=== PATIENT | female | born 1970 | race Caucasian/White ===

== ENCOUNTER 2021-08-15 14:00 | Outpatient (REF) | payer BC, SELFPAY ==
--- NOTE | ~2021-08-15 | XR_ITS ---
EXAMINATION: XR FOOT, LEFT CLINICAL INFORMATION: Pain COMPARISON No films available at this time to compare TECHNIQUE: AP, lateral, and oblique views of the left foot. FINDINGS: Alignment is felt to be within normal limits. There is no evidence for acute fracture or dislocation. Mild spurring in the posterior calcaneus at the insertion of the Achilles. No evidence for bony erosion. XR/XR foot LT 2V IMPRESSION: No acute bony finding. No bony erosion is seen. Alignment is felt to be within normal limits. No significant degeneration. Some spurring in the posterior calcaneus noted.
== END 2021-08-15 14:01 | disposition home or self-care (01) ==
LOC: HO.HMGCLDS 14:00
PROVIDERS: PCP Internal Medicine; Visit Provider Internal Medicine
DX: M79.672 Pain in left foot (principal)
CPT/HCPCS: 73620

== ENCOUNTER 2021-09-03 10:02 | Outpatient (REF) | payer BC, SELFPAY ==
[2021-09-04 09:43] LABS: BV Int Neg Control Negative (Negative); BV Int Pos Control Positive (Positive)
[2021-09-09 18:46] LABS: HPV mRNA E6/E7 rflx Not Detected (Not Detected)
== END 2021-09-03 10:03 | disposition home or self-care (01) ==
LOC: HO.LAB 10:02
PROVIDERS: PCP Internal Medicine; Visit Provider Advanced Practice Midwife
DX: Z01.411 Encounter for gynecological examination (general) (routine) with abnormal findings (principal); Z11.51 Encounter for screening for human papillomavirus (HPV); N89.8 Other specified noninflammatory disorders of vagina; R21 Rash and other nonspecific skin eruption
CPT/HCPCS: 87480; 87510; 87624; 87660; 88142

== ENCOUNTER 2021-09-23 07:14 | Outpatient (REF) | payer BC, SELFPAY | END 2021-09-23 07:15 | disposition home or self-care (01) | LOC: HO.MAMMO 07:14 | PROVIDERS: Visit Provider Internal Medicine | DX: Z13.89 Encounter for screening for other disorder (principal) ==

== ENCOUNTER 2021-11-11 07:23 | Outpatient (REF) | payer BC, SELFPAY ==
[2021-11-11 08:25] LABS: MANUAL DIFF FLAG NO
[2021-11-11 08:34] LABS: Basophils Absolute Auto 0.1 X10*3/uL (0.0-0.2); Basophils Percent Auto 1.3 % (0-2); Eosinophils Absolute Auto 0.2 X10*3/uL (0.0-0.4); Eosinophils Percent Auto 3.8 % (0-4); Hematocrit 43.8 % (37.0-47.0); Hemoglobin 13.6 g/dl (12.0-16.0); Imm Gran Abs Auto 0.03 X10*3/uL (0.00-0.03); Imm Gran Pct Auto 0.5 % (0.0-0.4); Lymphocytes Absolute Auto 1.9 X10*3/uL (1.2-4.9); Lymphocytes Percent Auto 29.6 % (20-40); Mean Corpuscular HGB Conc 31.1 g/dl (31.0-35.0); Mean Corpuscular Hemoglobin 26.4 pg (27.0-33.0); Mean Corpuscular Volume 84.9 fL (80.0-98.0); Mean Platelet Volume 10.9 fL (9.4-12.3); Monocytes Absolute Auto 0.5 X10*3/uL (0.1-1.2); Monocytes Percent Auto 8.1 % (2-11); Neutrophils Absolute Auto 3.6 x10*3/uL (2.0-8.3); Neutrophils Percent Auto 56.7 % (45-73); Platelet Count 347 X10*3/uL (160-400); Red Blood Count 5.16 X10*6/uL (4.20-5.50); Red Cell Distribution Width 15.1 % (11.0-16.0); White Blood Count 6.3 X10*3/uL (4.8-10.8)
[2021-11-11 09:03] LABS: Alanine Aminotransferase 15 U/L (0-31); Albumin Level 4.3 g/dL (3.5-5.0); Alkaline Phosphatase 102 U/L (39-117); Anion Gap 12 (12-20); Aspartate Amino Transferase 21 U/L (5-31); Bilirubin Total 0.5 mg/dL (0.0-1.0); Blood Urea Nitrogen 9 mg/dL (9-16); Calcium 9.6 mg/dL (8.4-10.2); Carbon Dioxide 27 mmol/L (22-29); Chloride 107 mmol/L (96-108); Cholesterol 227 mg/dL; Estimated Glomerular Filt Rate > 60; Glucose Random 112 mg/dL (60-115); HDL Cholesterol 58 mg/dL; LDL Cholesterol Calculated 149 mg/dl; Potassium 4.4 mmol/L (3.3-5.1); Sodium 142 mmol/L (135-145); Total Protein 7.1 g/dL (6.5-8.0); Triglycerides 100 mg/dL
[2021-11-11 09:29] LABS: Free T4 (Free Thyroxine) 1.04 ng/dL (0.71-1.85); Vitamin D 25-OH Total 16.7 ng/mL (>30)
[2021-11-11 09:36] LABS: Folate 7.2 ng/mL (> or = 4.0); Vitamin B12 538 pg/mL (200-900)
== END 2021-11-11 07:24 | disposition home or self-care (01) ==
LOC: HO.LAB 07:23
PROVIDERS: Absent Provider Internal Medicine; PCP Internal Medicine; Referring Provider Internal Medicine; Visit Provider Nurse Practitioner
DX: K21.9 Gastro-esophageal reflux disease without esophagitis (principal); E78.00 Pure hypercholesterolemia, unspecified; E66.01 Morbid (severe) obesity due to excess calories; Z68.44 Body mass index [BMI] 60.0-69.9, adult
CPT/HCPCS: 36415; 80053; 80061; 82306; 82607; 82746; 84439; 84443; 85025

== ENCOUNTER → 2022-01-01 07:31 | Outpatient (BNVA) | payer BC, SELFPAY | PROVIDERS: PCP Internal Medicine; Referring Provider Internal Medicine; Visit Provider Nurse Practitioner | DX: Z13.89 Encounter for screening for other disorder (principal) ==

== ENCOUNTER → 2022-06-08 06:57 | Outpatient (REF) | payer BC, SELFPAY ==
--- NOTE | 2022-06-08 06:59 | HM_ITS ---
Conclusion: 1. Patient was monitored for total period of 2 days and 23 hours 2. Baseline was normal sinus rhythm with average heart rate of 76 beats per minute 3. No significant pauses noted 4. Total of 1526 PVCs noted consistent with occasional PVCs. 5. Rare PACs noted 6. Patient marked events without symptoms correlating with isolated PVCs MTDD
== END ==
LOC: HO.CARD 06:57
PROVIDERS: PCP Internal Medicine; Visit Provider Internal Medicine
DX: R00.2 Palpitations (principal)
CPT/HCPCS: 93242

== ENCOUNTER 2022-06-19 07:34 | Outpatient (REF) | payer BC, SELFPAY ==
--- NOTE | ~2022-06-19 | MM_ITS ---
EXAMINATION: MM SCREENING DIGITAL BREAST TOMOSYNTHESIS, BILATERAL CLINICAL INFORMATION: Screening. Asymptomatic. Mammography over 10 years ago, purged. The lifetime risk of breast cancer based on the Tyrer-Cuzick Model is 10%. COMPARISON: None (current study represents new baseline exam). TECHNIQUE: Digital breast tomosynthesis is performed in both the craniocaudal and mediolateral oblique views along with computer-aided detection (CAD). Synthesized 2D images are generated from the tomosynthesis. Additional bilateral CC and additional bilateral MLO views are obtained. FINDINGS: The breasts are almost entirely fatty (ACR BI-RADS breast composition Category a). There are no significant masses, abnormal calcifications, or other abnormalities. No architectural abnormality. There are mildly prominent draining veins bilateral upper breasts axilla. No adenopathy. No skin thickening or coarsening of the Nabeel's ligaments. MM/MM tomosynthesis screening BI IMPRESSION: No mammographic evidence of malignancy. ASSESSMENT: BI-RADS 2: Benign RECOMMENDATION: Routine annual mammography screening. This patient's information was entered into a reminder system with a target due date for their next mammogram.
== END 2022-06-19 07:35 | disposition home or self-care (01) ==
LOC: HO.MAMMO 07:34
PROVIDERS: PCP Internal Medicine; Visit Provider Internal Medicine
DX: Z12.31 Encounter for screening mammogram for malignant neoplasm of breast (principal)
CPT/HCPCS: 77063; 77067

== ENCOUNTER → 2022-12-23 10:00 | Outpatient (BNVA) | payer BC, SELFPAY | PROVIDERS: PCP Internal Medicine; Visit Provider Advanced Practice Midwife | DX: Z13.89 Encounter for screening for other disorder (principal) ==

== ENCOUNTER 2023-04-09 06:06 | Outpatient (REF) | payer BC, SELFPAY ==
[2023-04-09 11:23] LABS: MANUAL DIFF FLAG NO
[2023-04-09 11:42] LABS: Basophils Absolute Auto 0.1 X10*3/uL (0.0-0.2); Basophils Percent Auto 1.2 % (0-2); Eosinophils Absolute Auto 0.3 X10*3/uL (0.0-0.4); Eosinophils Percent Auto 5.2 % (0-4); Hematocrit 40.9 % (37.0-47.0); Hemoglobin 12.8 g/dl (12.0-16.0); Imm Gran Abs Auto 0.03 X10*3/uL (0.00-0.03); Imm Gran Pct Auto 0.5 % (0.0-0.4); Lymphocytes Percent Auto 33.4 % (20-40); Mean Corpuscular HGB Conc 31.3 g/dl (31.0-35.0); Mean Corpuscular Hemoglobin 26.6 pg (27.0-33.0); Mean Platelet Volume 11.5 fL (9.4-12.3); Monocytes Absolute Auto 0.5 X10*3/uL (0.1-1.2); Monocytes Percent Auto 8.2 % (2-11); Neutrophils Absolute Auto 3.1 x10*3/uL (2.0-8.3); Neutrophils Percent Auto 51.5 % (45-73); Platelet Count 351 X10*3/uL (160-400); Red Blood Count 4.81 X10*6/uL (4.20-5.50); Red Cell Distribution Width 15.4 % (11.0-16.0)
[2023-04-09 12:22] LABS: Erythrocyte Sedimentation Rate 18 MM/HR (0-20)
[2023-04-09 13:38] LABS: Estimated Average Glucose 111 mg/dL; Hemoglobin A1c % 5.5 %
[2023-04-09 15:20] LABS: Alanine Aminotransferase 12 U/L (0-31); Albumin Level 3.9 g/dL (3.5-5.0); Alkaline Phosphatase 84 U/L (39-117); Anion Gap 15 (12-20); Aspartate Amino Transferase 16 U/L (5-31); Bilirubin Total 0.5 mg/dL (0.0-1.0); Blood Urea Nitrogen 14 mg/dL (9-16); Calcium 9.3 mg/dL (8.4-10.2); Carbon Dioxide 24 mmol/L (22-29); Chloride 106 mmol/L (96-108); Cholesterol 240 mg/dL; Estimated Glomerular Filt Rate > 60; Free T4 (Free Thyroxine) 0.83 ng/dL (0.71-1.85); Glucose Random 105 mg/dL (60-115); HDL Cholesterol 63 mg/dL; LDL Cholesterol Calculated 160 mg/dl; Potassium 4.3 mmol/L (3.3-5.1); Sodium 141 mmol/L (135-145); Thyroid Stimulating Hormone 4.95 uIU/mL (0.32-4.0); Total Protein 6.8 g/dL (6.5-8.0); Triglycerides 89 mg/dL; Vitamin D 25-OH Total 20.5 ng/mL (>30)
[2023-04-09 15:47] LABS: Folate 5.8 ng/mL (> or = 4.0); Vitamin B12 412 pg/mL (200-900)
== END 2023-04-09 06:07 | disposition home or self-care (01) ==
LOC: HO.HMGCLDS 06:06
PROVIDERS: PCP Internal Medicine; Visit Provider Internal Medicine
DX: E55.9 Vitamin D deficiency, unspecified (principal); K21.9 Gastro-esophageal reflux disease without esophagitis; R73.02 Impaired glucose tolerance (oral); E78.00 Pure hypercholesterolemia, unspecified; L40.9 Psoriasis, unspecified
CPT/HCPCS: 36415; 80053; 80061; 82306; 82607; 82746; 83036; 84439; 84443; 85025; 85652

== ENCOUNTER 2023-04-14 09:15 | Outpatient (AMB) | payer BC, SELFPAY ==
[2023-04-14 09:25] VITALS: BP 128/70; PULSE 75; O2SAT 98; BMI 60.9
--- NOTE | 2023-04-14 09:25 | MHC.PC.OV ---
Vital Signs 04/14/23 09:25 Height 4 ft 11 in Weight 301 lb 5.95 oz BMI 60.9 BP 128/70 Blood Pressure Location Lt brachial Position Sitting Pulse 75 Pulse Source Pulse Oximeter Pulse Oximetry (%) 98 Oxygen Delivery Method Room Air Intake Visit Reasons: PE Allergies Sulfa (Sulfonamide Antibiotics) Allergy (Severe, Verified 04/14/23 09:25) Hives Medication List - Last Reconciled 04/14/23 by Anne Marie Boone MD betamethasone dipropionate 0.05% topical cetirizine (Zyrtec) 10 mg PO DAILY PRN doxycycline monohydrate 100 mg PO BID hydrocortisone 2.5% topical omeprazole 20 mg PO DAILY Tobacco use date assessed: 04/14/23 Dental Screening Dental Screen Date: 04/14/23 Did you have a dental visit in the last 12 months?: Yes Did you have a dental problem in the last 6 months where you did not have access to dental care?: No Was dental information given to patient?: Patient has dentist HPI PE HPI Details 52-year-old morbidly obese female with impaired glucose tolerance hypercholesterolemia GERD palpitations last seen in May 2022. Cologuard test up-to-date mammogram up-to-date. 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 Mother No problems noted. Brother No problems noted. Maternal Aunt Lung cancer Brain cancer Maternal Uncle Brain cancer Maternal Uncle Alcohol abuse Mental health disorder Social History (Updated 04/14/23 @ 10:01 by Anne Marie Boone MD) Housing: House Alcohol intake: current Alcohol intake frequency: holidays/special occasions only Patient Tobacco Use Status: Never used Tobacco e-Cigarette/Vaping Use: Never Used Second Hand Smoke Exposure: No Current occupational status: employed Sexual orientation: Lesbian/Deutsch/Homosexual Gender identity: Female Cognitive needs: No Hearing needs: No Vision needs: No Female Reproductive History Menstrual Age of Menarche: 13 Questionnaire PHQ-9 Over the last 2 weeks, how often have you been bothered by any of the following problems? 1. Little interest or pleasure in doing things: not at all 2. Feeling down, depressed, or hopeless: not at all 3. Trouble falling or staying asleep, or sleeping too much: not at all 4. Feeling tired or having little energy: not at all 5. Poor appetite or overeating: not at all 6. Feeling bad about yourself - or that you are a failure or have let yourself or your family down: not at all 7. Trouble concentrating on things, such as reading the newspaper or watching television: not at all 8. Moving or speaking so slowly that other people could have noticed. Or the opposite - being so fidgety or restless that you have been moving around a lot more than usual: not at all 9. Thoughts that you would be better off or of hurting yourself in some way: not at all Total score: 0 Depression Screening Interpretation: Negative Source: Developed by Drs. Antolin Thomson, Marium Farfan, Nura Fernandez and colleagues, with an educational rupesh from [employer]. Thrive Questionnaire Date Thrive assessed: 04/14/23 I am a: Patient What is your living situation today?: I have a steady place to live Within the past 12 months, did the food you bought not last and you didn't have the money to get more?: Never true Within the past 12 months, did you worry whether your food would run out before you got money to buy more?: Never true Do you have trouble paying for medicines?: No Do you have trouble getting transportation to medical appointments?: No Do you have trouble paying your heating and electricity bill?: No Do you have trouble taking care of your child, family member or friend?: No Do you have trouble with day-to-day activities such as bathing, preparing meals, shopping, managing finances, etc.?: No Are you currently unemployed and looking for a job?: No Are you interested in more education?: No Currently or been in a relationship where the following occur: no concerns reported AUDIT C Alcohol Use Questionnaire (AUDIT-C) 1. How often do you have a drink containing alcohol?: Monthly or less 2. How many drinks containing alcohol do you have on a typical day when you are drinking?: 1 or 2 3. How often do you have six or more drinks on one occasion?: Never Total Score: 1 TAMMIE-7 AMB Questionnaire TAMMIE-7 Date TAMMIE - 7 assessed: 04/14/23 Feeling nervous, anxious, or on edge: 0 = Not at all Not being able to stop or control worryin = Not at all Worrying too much about different things: 0 = Not at all Trouble relaxin = Not at all Being so restless that it is hard to sit still: 0 = Not at all Becoming easily annoyed or irritable: 0 = Not at all Feeling afraid as if something awful might happen: 0 = Not at all Total TAMMIE-7 score (0-4 normal; 5-9 mild; 10-14 moderate; 15-21 severe): 0 Source: Developed by Drs. Antolin Thomson, Marium Farfan, Nura Fernandez and colleagues, with an educational rupesh from [employer]. Review of Systems Const Denies poor appetite and Denies weakness Eyes Denies no additional complaints ENT Reports Normal hearing present Card Denies chest pain, Denies syncope, Denies rapid heart rate and Denies dyspnea Resp Denies cough and Denies dyspnea GI Denies change in stool character, Reports constipation, Denies diarrhea, Denies nausea and Denies vomiting Denies urinary frequency, Denies difficulty voiding and Denies dysuria Neuro Reports Normal hearing present, Denies confusion, Denies syncope and Denies weakness Psych Denies confusion Physical exam (Primary Care) Vital Signs: Last Vital Signs Pulse 75 04/14/23 09:25 BP 128/70 04/14/23 09:25 Pulse Ox 98 04/14/23 09:25 Oxygen Delivery Method Room Air 04/14/23 09:25 BMI result Body Mass Index 60.9 Tobacco/Smoking Status: Tobacco use Status Tobacco use date assessed 04/14/23 04/14/23 09:26 Patient Tobacco Use Status Never used Tobacco 04/14/23 09:26 e-Cigarette/Vaping Use Never Used 04/14/23 09:26 PHQ-9: PHQ-9 Score PHQ-9: Total score 0 04/14/23 09:45 Depression Screening Interpretation: Negative Thrive Assessment: Date of Thrive Assessment Date Thrive assessed 04/14/23 04/14/23 09:26 Currently or been in a relationship where the following occur: no concerns reported Const General: alert and awake; No confusion Orientation/consciousness: No confusion HENMT Head: Yes normocephalic Ears: external ears normal and TM's normal bilaterally Face and sinus: Yes normal facial exam Mouth: moist mucous membranes Throat: Yes tonsils normal Eyes Conjunctivae: conjunctivae normal Pupils: Equal, round and reactive pupils present and Pupil accommodation reflex normal Direct Ophthalmoscopy: normal light reflex Neck Neck: No lymphadenopathy Thyroid: Thyroid normal Chest Chest palpation & inspection: normal inspection of the chest Resp Effort & Inspection: normal respiratory effort and no audible wheezes Auscultation: clear to auscultation bilaterally, no crackles, no wheezes and lung sounds not diminished Cardio Rate: regular rate Rhythm: regular rhythm Peripheral pulses: radial pulses present and dorsalis pedis present GI Other: Up-to-date Cologuard and declined rectal Palpation (GI): no masses Auscultation: normal bowel sounds and normoactive bowel sounds Rectal Exam - Female: deferred Back/Spine/Pelvis Other: Multiple erythematous rash 123 cm scaly axillary elbows and scalp Skin General skin exam: no rashes or lesions noted Rashes: no rashes Neuro General: deep tendon reflexes 2+ bilaterally and No confusion Cranial nerves: Yes Equal, round and reactive pupils present, Yes Midline tongue present, Yes Normal hearing present and Yes Ability to bilaterally elevate shoulders present Cognition (Neuro): normal cognition Gait exam (Neuro): Normal gait present Motor exam (neuro): 5/5 motor strength present throughout Deep tendon reflexes (DTR's): Right brachioradialis reflex intensity grade: 2+, Left brachioradialis reflex intensity grade: 2+, Right patellar reflex intensity grade: 2+ and Left patellar reflex intensity grade: 2+ Extrem General: No edema Assessment and Plan Assessment & Plan (1) Annual physical exam: Code(s): Z00.00 - Encounter for general adult medical examination without abnormal findings (2) Morbid obesity with BMI of 60.0-69.9, adult: Code(s): E66.01 - Morbid (severe) obesity due to excess calories; Z68.44 - Body mass index [BMI] 60.0-69.9, adult Plan: Diet and exercise (3) GERD (gastroesophageal reflux disease): Code(s): K21.9 - Gastro-esophageal reflux disease without esophagitis Plan: Avoid the foods that causes that usually spicy foods, tomato products, juices, coffee, soda and foods that your sensitive to. After eating do not lie down, allow 3-4 hours before in lie down. And keep the head of bed above 30 degrees to avoid the acid from going up. (4) Impaired glucose tolerance: Code(s): R73.02 - Impaired glucose tolerance (oral) Plan: Decrease the amount of carbohydrate intake, pasta, bread, rice and potatoes are all sugar and that is aside from all the sweet stuff, remember that fruits are good but they are Sweet also. (5) Hypercholesterolemia: Code(s): E78.00 - Pure hypercholesterolemia, unspecified Plan: Avoid fried foods, chicken skin, eggs, butter margarine, pastries and meat. Be it pork or beef they have a lot of cholesterol LDL goal of less than 130 and triglyceride of less than 150 (6) Vitamin D deficiency: Code(s): E55.9 - Vitamin D deficiency, unspecified Plan: Vitamin-D 5860-2335 units once a day (7) Palpitation: Code(s): R00.2 - Palpitations Plan: Holter done revealed negative results (8) TSH elevation: Code(s): R79.89 - Other specified abnormal findings of blood chemistry Plan: Repeat testing in 3 months Orders: Orders Comprehensive Met. Panel 3 Months R73.02 - Impaired glucose tolerance (oral) Hemoglobin A1c 3 Months R73.02 - Impaired glucose tolerance (oral) Lipid Panel 3 Months E78.00 - Pure hypercholesterolemia, unspecified Free T4 (Free Thyroxine) 3 Months R79.89 - Other specified abnormal findings of blood chemistry Medications: New semaglutide for 4 weeks 0.25 mg (0.368 mL) subcut QWEEK 3 mL 2RF E66.01 - Morbid (severe) obesity due to excess calories, Z68.44 - Body mass index [BMI] 60.0-69.9, adult Coding Level of Care Code Est Pt Prev Care 40-64y(78822) Diagnoses Annual physical exam Z00.00 Morbid obesity with BMI of 60.0-69.9, adult E66.01; Z68.44 GERD (gastroesophageal reflux disease) K21.9 Impaired glucose tolerance R73.02 Hypercholesterolemia E78.00 Vitamin D deficiency E55.9 Palpitation R00.2 TSH elevation R79.89
== END 2023-04-14 10:34 | disposition home or self-care (01) ==
PROVIDERS: PCP Internal Medicine; Visit Provider Internal Medicine
DX: Z00.00 Encounter for general adult medical examination without abnormal findings (principal); E66.01 Morbid (severe) obesity due to excess calories; Z68.44 Body mass index [BMI] 60.0-69.9, adult; K21.9 Gastro-esophageal reflux disease without esophagitis; E55.9 Vitamin D deficiency, unspecified; R73.02 Impaired glucose tolerance (oral); E78.00 Pure hypercholesterolemia, unspecified; R00.2 Palpitations; R79.89 Other specified abnormal findings of blood chemistry
CPT/HCPCS: 99396

== ENCOUNTER 2023-07-10 07:18 | Outpatient (REF) | payer BC, SELFPAY ==
--- NOTE | ~2023-07-10 | MM_ITS ---
EXAMINATION: MM SCREENING DIGITAL BREAST TOMOSYNTHESIS, BILATERAL CLINICAL INFORMATION: Screening. Asymptomatic. COMPARISON: Mammography: 2021. TECHNIQUE: Digital breast tomosynthesis is performed in both the craniocaudal and mediolateral oblique views along with computer-aided detection (CAD). Synthesized 2D images are generated from the tomosynthesis. FINDINGS: The breasts are almost entirely fatty (ACR BI-RADS breast composition Category a). There are no significant masses, abnormal calcifications, or other abnormalities. MM/MM tomosynthesis screening BI IMPRESSION: No mammographic evidence of malignancy. ASSESSMENT: BI-RADS BI-RADS 1 - Negative RECOMMENDATION: Routine annual mammography screening. 1 year F/U This examination should not preclude the clinical evaluation of a suspicious palpable abnormality. This patient's information was entered into a reminder system with a target due date for their next mammogram.
== END 2023-07-10 07:19 | disposition home or self-care (01) ==
LOC: HO.MAMMO 07:18
PROVIDERS: PCP Internal Medicine; Visit Provider Internal Medicine
DX: Z12.31 Encounter for screening mammogram for malignant neoplasm of breast (principal)
CPT/HCPCS: 77063; 77067

== ENCOUNTER → 2023-07-10 07:30 | Outpatient (BNV) | payer BC, SELFPAY | PROVIDERS: PCP Internal Medicine; Visit Provider Radiology Diagnostic Radiology | DX: Z12.31 Encounter for screening mammogram for malignant neoplasm of breast (principal) | CPT/HCPCS: 77063; 77067 ==

== ENCOUNTER 2023-07-24 06:51 | Outpatient (REF) | payer BC, SELFPAY ==
[2023-07-24 11:21] LABS: Estimated Average Glucose 111 mg/dL; Hemoglobin A1c % 5.5 % (<6.0)
[2023-07-24 11:35] LABS: Alanine Aminotransferase 13 U/L (0-31); Albumin Level 3.9 g/dL (3.5-5.0); Alkaline Phosphatase 82 U/L (39-117); Anion Gap 13 (12-20); Aspartate Amino Transferase 20 U/L (5-31); Bilirubin Total 0.8 mg/dL (0.0-1.0); Blood Urea Nitrogen 16 mg/dL (9-16); Calcium 9.2 mg/dL (8.4-10.2); Carbon Dioxide 26 mmol/L (22-29); Chloride 105 mmol/L (96-108); Cholesterol 267 mg/dL (<200); Estimated Glomerular Filt Rate > 60; Glucose Random 103 mg/dL (60-115); HDL Cholesterol 61 mg/dL (>40); LDL Cholesterol Calculated 186 mg/dL (<100); Sodium 140 mmol/L (135-145); Total Protein 6.8 g/dL (6.5-8.0); Triglycerides 104 mg/dL (<150)
[2023-07-24 11:53] LABS: Free T4 (Free Thyroxine) 0.94 ng/dL (0.71-1.85)
== END 2023-07-24 06:52 | disposition home or self-care (01) ==
LOC: HO.HMGCLDS 06:51
PROVIDERS: PCP Internal Medicine; Visit Provider Internal Medicine
DX: R73.02 Impaired glucose tolerance (oral) (principal); R94.6 Abnormal results of thyroid function studies; E78.00 Pure hypercholesterolemia, unspecified
CPT/HCPCS: 36415; 80053; 80061; 83036; 84439; 84443

== ENCOUNTER 2023-07-27 15:22 | Outpatient (AMB) | payer BC, SELFPAY ==
[2023-07-27 15:33] VITALS: BP 150/80; PULSE 70; O2SAT 95; BMI 60.0
--- NOTE | 2023-07-27 15:33 | A.OFFPC_ITS ---
Vital Signs 07/27/23 15:33 Height 4 ft 11 in Weight 297 lb BMI 60.0 BP 150/80 H Blood Pressure Location Lt brachial Position Sitting Pulse 70 Pulse Source Pulse Oximeter Pulse Oximetry (%) 95 Oxygen Delivery Method Room Air Intake Visit Reasons: 3 month f/u Primary Teaching Assistant Required: No Reconciliation Manager: Not Required per policy Accompanied by: Self / Same As Patient Allergies Sulfa (Sulfonamide Antibiotics) Allergy (Severe, Verified 07/27/23 15:34) Hives Medication List - Last Reconciled 07/27/23 by Anne Marie Boone MD betamethasone dipropionate 0.05% topical cetirizine (Zyrtec) 10 mg PO DAILY PRN doxycycline monohydrate 100 mg PO BID hydrocortisone 2.5% topical omeprazole 20 mg PO DAILY semaglutide 0.25 mg (0.368 mL) subcut QWEEK Tobacco use date assessed: 04/14/23 Dental Screening Dental Screen Date: 07/27/23 Did you have a dental visit in the last 12 months?: Yes Did you have a dental problem in the last 6 months where you did not have access to dental care?: No Was dental information given to patient?: Patient has dentist HPI 3 month f/u HPI Details 53-year-old obese female with GERD impai red glucose tolerance hypercholesterolemia coming in for follow-up. Last seen for physical and April 2023. Up-to-date with colon cancer screening and mammogram. 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 Mother No problems noted. Brother No problems noted. Maternal Aunt Lung cancer Brain cancer Maternal Uncle Brain cancer Maternal Uncle Alcohol abuse Mental health disorder Housing: House Alcohol intake: current Alcohol intake frequency: holidays/special occasions only Patient Tobacco Use Status: Never used Tobacco e-Cigarette/Vaping Use: Never Used Second Hand Smoke Exposure: No Current occupational status: employed Sexual orientation: Lesbian/Deutsch/Homosexual Gender identity: Female Cognitive needs: No Hearing needs: No Vision needs: No Female Reproductive History Menstrual Age of Menarche: 13 Questionnaire PHQ-9 Over the last 2 weeks, how often have you been bothered by any of the following problems? 1. Little interest or pleasure in doing things: not at all 2. Feeling down, depressed, or hopeless: not at all 3. Trouble falling or staying asleep, or sleeping too much: not at all 4. Feeling tired or having little energy: not at all 5. Poor appetite or overeating: not at all 6. Feeling bad about yourself - or that you are a failure or have let yourself or your family down: not at all 7. Trouble concentrating on things, such as reading the newspaper or watching television: not at all 8. Moving or speaking so slowly that other people could have noticed. Or the opposite - being so fidgety or restless that you have been moving around a lot more than usual: not at all 9. Thoughts that you would be better off or of hurting yourself in some way: not at all Total score: 0 Depression Screening Interpretation: Negative Depression Screening Done: Yes Source: Developed by Drs. Antolin Thomson, Nura Mai and colleagues, with an educational rupesh from [employer]. Thrive Questionnaire Date Thrive assessed: 04/14/23 AUDIT C Alcohol Use Questionnaire (AUDIT-C) 1. How often do you have a drink containing alcohol?: Monthly or less 2. How many drinks containing alcohol do you have on a typical day when you are drinking?: 1 or 2 3. How often do you have six or more drinks on one occasion?: Never Total Score: 1 TAMMIE-7 AMB Questionnaire TAMMIE-7 Date TAMMIE - 7 assessed: 04/14/23 Source: Developed by Drs. Antolin Thomson, Nura Mai and colleagues, with an educational rupesh from [employer]. Physical exam (Primary Care) Vital Signs: Last Vital Signs Pulse 70 07/27/23 15:33 BP 150/80 H 07/27/23 15:33 Pulse Ox 95 07/27/23 15:33 Oxygen Delivery Method Room Air 07/27/23 15:33 BMI result Body Mass Index 60.0 Tobacco/Smoking Status: Tobacco use Status Tobacco use date assessed 04/14/23 07/27/23 15:34 Patient Tobacco Use Status Never used Tobacco 07/27/23 15:34 e-Cigarette/Vaping Use Never Used 07/27/23 15:34 PHQ-9: PHQ-9 Score PHQ-9: Total score 0 07/27/23 15:34 Depression Screening Interpretation: Negative Thrive Assessment: Date of Thrive Assessment Date Thrive assessed 04/14/23 07/27/23 15:34 Const General: alert; No acute distress Eyes Conjunctivae: conjunctivae normal Resp Auscultation: clear to auscultation bilaterally Cardio Rate: regular rate Rhythm: regular rhythm GI Inspection: Yes normal to inspection Extrem General: Yes normal to inspection and No edema Assessment and Plan Assessment & Plan (1) TSH elevation: Code(s): R79.89 - Other specified abnormal findings of blood chemistry Plan: Mild elevation will continue to follow-up (2) Hypercholesterolemia: Code(s): E78.00 - Pure hypercholesterolemia, unspecified Plan: Avoid fried foods, chicken skin, eggs, butter margarine, pastries and meat. Be it pork or beef they have a lot of cholesterol LDL goal of less than 130 and triglyceride of less than 150 (3) Impaired glucose tolerance: Code(s): R73.02 - Impaired glucose tolerance (oral) Plan: Decrease the amount of carbohydrate intake, pasta, bread, rice and potatoes are all sugar and that is aside from all the sweet stuff, remember that fruits are good but they are Sweet also. (4) Morbid obesity with BMI of 60.0-69.9, adult: Code(s): E66.01 - Morbid (severe) obesity due to excess calories; Z68.44 - Body mass index [BMI] 60.0-69.9, adult Plan: Continue Diet and exercise (5) GERD (gastroesophageal reflux disease): Code(s): K21.9 - Gastro-esophageal reflux disease without esophagitis Plan: Avoid the foods that causes that usually spicy foods, tomato products, juices, coffee, soda and foods that your sensitive to. After eating do not lie down, allow 3-4 hours before in lie down. And keep the head of bed above 30 degrees to avoid the acid from going up. Orders: Orders Thyroid Stimulating Hormone 3 Months E78.00 - Pure hypercholesterolemia, unspecified Lipid Panel 3 Months E78.00 - Pure hypercholesterolemia, unspecified Comprehensive Met. Panel 3 Months E78.00 - Pure hypercholesterolemia, unspecified Hemoglobin A1c 3 Months E78.00 - Pure hypercholesterolemia, unspecified Free T4 (Free Thyroxine) 3 Months E78.00 - Pure hypercholesterolemia, unspecified Medications: New semaglutide (weight loss) (Radha) administer weeks 1 through 4 of therapy 0.25 mg (0.5 mL) subcut QWEEK 2 mL 0RF E66.01 - Morbid (severe) obesity due to excess calories, Z68.44 - Body mass index [BMI] 60.0-69.9, adult simvastatin 5 mg PO BEDTIME 30 tabs 4RF E78.00 - Pure hypercholesterolemia, unspecified Discontinued semaglutide for 4 weeks Discontinued Reason: Ancillary Entered New Order 0.25 mg (0.368 mL) subcut QWEEK 3 mL 2RF E66.01 - Morbid (severe) obesity due to excess calories, Z68.44 - Body mass index [BMI] 60.0-69.9, adult Coding Level of Care Code Est Pt Level 4 (17475) Diagnoses TSH elevation R79.89 Hypercholesterolemia E78.00 Impaired glucose tolerance R73.02 Morbid obesity with BMI of 60.0-69.9, adult E66.01; Z68.44 GERD (gastroesophageal reflux disease) K21.9
== END 2023-07-27 16:14 | disposition home or self-care (01) ==
PROVIDERS: PCP Internal Medicine; Visit Provider Internal Medicine
DX: R79.89 Other specified abnormal findings of blood chemistry (principal); E66.01 Morbid (severe) obesity due to excess calories; Z68.44 Body mass index [BMI] 60.0-69.9, adult; E78.00 Pure hypercholesterolemia, unspecified; R73.02 Impaired glucose tolerance (oral); K21.9 Gastro-esophageal reflux disease without esophagitis
CPT/HCPCS: 99214

== ENCOUNTER 2023-12-10 06:24 | Outpatient (REF) | payer BC, SELFPAY ==
[2023-12-10 10:56] LABS: Estimated Average Glucose 114 mg/dL; Hemoglobin A1c % 5.6 % (<6.0)
[2023-12-10 11:13] LABS: Alanine Aminotransferase 12 U/L (0-31); Albumin Level 3.9 g/dL (3.5-5.0); Alkaline Phosphatase 85 U/L (39-117); Anion Gap 13 (12-20); Aspartate Amino Transferase 18 U/L (5-31); Bilirubin Total 0.5 mg/dL (0.0-1.0); Blood Urea Nitrogen 11 mg/dL (9-16); Calcium 9.4 mg/dL (8.4-10.2); Carbon Dioxide 25 mmol/L (22-29); Chloride 106 mmol/L (96-108); Cholesterol 201 mg/dL (<200); Estimated Glomerular Filt Rate > 60; Glucose Random 114 mg/dL (60-115); HDL Cholesterol 61 mg/dL (>40); LDL Cholesterol Calculated 116 mg/dL (<100); Potassium 4.2 mmol/L (3.3-5.1); Sodium 140 mmol/L (135-145); Total Protein 6.9 g/dL (6.5-8.0); Triglycerides 121 mg/dL (<150)
[2023-12-10 11:31] LABS: Free T4 (Free Thyroxine) 0.82 ng/dL (0.71-1.85); Thyroid Stimulating Hormone 4.81 uIU/mL (0.32-4.0)
== END 2023-12-10 06:25 | disposition home or self-care (01) ==
LOC: HO.HMGCLDS 06:24
PROVIDERS: PCP Internal Medicine; Visit Provider Internal Medicine
DX: E78.00 Pure hypercholesterolemia, unspecified (principal)
CPT/HCPCS: 36415; 80053; 80061; 83036; 84439; 84443

== ENCOUNTER 2023-12-13 16:09 | Outpatient (AMB) | payer BC, SELFPAY ==
--- NOTE | 2023-12-13 16:11 | MHC.PC.OV ---
Vital Signs 12/13/23 16:12 Height 4 ft 11 in Weight 304 lb BMI 61.4 BP 138/74 Blood Pressure Location Lt radial Position Sitting Pulse 84 Pulse Source Pulse Oximeter Pulse Oximetry (%) 97 Oxygen Delivery Method Room Air Intake Visit Reasons: cholesterol,IGTmorbid obesity Internet Application Developer Required: No Allergies Sulfa (Sulfonamide Antibiotics) Allergy (Severe, Verified 12/13/23 16:12) Hives Medication List - Last Reconciled 12/13/23 by Anne Marie Boone MD betamethasone dipropionate 0.05% topical cetirizine (Zyrtec) 10 mg PO DAILY PRN hydrocortisone 2.5% topical omeprazole 20 mg PO DAILY semaglutide (weight loss) (Wegovy) 0.25 mg (0.5 mL) subcut QWEEK simvastatin 5 mg PO BEDTIME Tobacco use date assessed: 12/13/23 Dental Screening Dental Screen Date: 12/13/23 Did you have a dental visit in the last 12 months?: Yes Did you have a dental problem in the last 6 months where you did not have access to dental care?: No Was dental information given to patient?: Patient has dentist HPI cholesterol,IGTmorbid obesity HPI Details 53-year-old morbidly obese female with hypercholesterolemia impaired glucose tolerance GERD last seen in July 2023. Cologuard negative November 2021 mammogram is up-to-date. 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 Mother No problems noted. Brother No problems noted. Maternal Aunt Lung cancer Brain cancer Maternal Uncle Brain cancer Maternal Uncle Alcohol abuse Mental health disorder Social History Housing: House Alcohol intake: current Alcohol intake frequency: holidays/special occasions only Patient Tobacco Use Status: Never used Tobacco e-Cigarette/Vaping Use: Never Used Second Hand Smoke Exposure: No Current occupational status: employed Sexual orientation: Lesbian/Deutsch/Homosexual Gender identity: Female Cognitive needs: No Hearing needs: No Vision needs: No Female Reproductive History Menstrual Age of Menarche: 13 Questionnaire PHQ-9 Over the last 2 weeks, how often have you been bothered by any of the following problems? 1. Little interest or pleasure in doing things: several days 2. Feeling down, depressed, or hopeless: several days (pt states on and off ) 3. Trouble falling or staying asleep, or sleeping too much: several days 4. Feeling tired or having little energy: more than half the days 5. Poor appetite or overeating: nearly every day 6. Feeling bad about yourself - or that you are a failure or have let yourself or your family down: several days 7. Trouble concentrating on things, such as reading the newspaper or watching television: several days 8. Moving or speaking so slowly that other people could have noticed. Or the opposite - being so fidgety or restless that you have been moving around a lot more than usual: several days 9. Thoughts that you would be better off or of hurting yourself in some way: not at all Total score: 11 Depression Screening Interpretation: Positive Depression Screening Done: Yes 31966 - PHQ-9 Billing: Yes Source: Developed by Drs. Antolin Thomson, Marium Farfan, Nura Fernandez and colleagues, with an educational rupesh from [employer] Thrive Questionnaire Date Thrive assessed: 12/13/23 I am a: Patient What is your living situation today?: I have a steady place to live Within the past 12 months, did the food you bought not last and you didn't have the money to get more?: Never true Within the past 12 months, did you worry whether your food would run out before you got money to buy more?: Never true Do you have trouble paying for medicines?: No Do you have trouble getting transportation to medical appointments?: No Do you have trouble paying your heating and electricity bill?: No Do you have trouble taking care of your child, family member or friend?: No Do you have trouble with day-to-day activities such as bathing, preparing meals, shopping, managing finances, etc.?: No Are you currently unemployed and looking for a job?: No Are you interested in more education?: No Please select the resources that you would like help with: None Currently or been in a relationship where the following occur: no concerns reported THRIVE Score: 0 AUDIT C Alcohol Use Questionnaire (AUDIT-C) 1. How often do you have a drink containing alcohol?: Monthly or less 2. How many drinks containing alcohol do you have on a typical day when you are drinking?: 1 or 2 3. How often do you have six or more drinks on one occasion?: Never Total Score: 1 TAMMIE-7 AMB Questionnaire TAMMIE-7 Date TAMMIE - 7 assessed: 12/13/23 Feeling nervous, anxious, or on edge: 0 = Not at all Not being able to stop or control worryin = Not at all Worrying too much about different things: 0 = Not at all Trouble relaxin = Not at all Being so restless that it is hard to sit still: 0 = Not at all Becoming easily annoyed or irritable: 0 = Not at all Feeling afraid as if something awful might happen: 0 = Not at all Total TAMMIE-7 score (0-4 normal; 5-9 mild; 10-14 moderate; 15-21 severe): 0 Source: Developed by Drs. Antolin Thomson, Marium Farfan, Nura Fernandez and colleagues, with an educational rupesh from [employer] TAMMIE-7 Assessment Billing TAMMIE-7 Assessment Tool: TAMMIE-7 Assessment 90731 Physical exam (Primary Care) Vital Signs: Last Vital Signs Pulse 84 12/13/23 16:12 BP 138/74 12/13/23 16:12 Pulse Ox 97 12/13/23 16:12 Oxygen Delivery Method Room Air 12/13/23 16:12 BMI result Body Mass Index 61.4 Tobacco/Smoking Status: Tobacco use Status Tobacco use date assessed 12/13/23 12/13/23 16:13 Patient Tobacco Use Status Never used Tobacco 12/13/23 16:13 e-Cigarette/Vaping Use Never Used 12/13/23 16:13 PHQ-9: PHQ-9 Score PHQ-9: Total score 11 12/13/23 16:20 Depression Screening Interpretation: Positive Thrive Assessment: Date of Thrive Assessment Date Thrive assessed 12/13/23 12/13/23 16:13 Currently or been in a relationship where the following occur: no concerns reported Const General: alert; No acute distress Eyes Conjunctivae: conjunctivae normal Resp Auscultation: clear to auscultation bilaterally Cardio Rate: regular rate Rhythm: regular rhythm GI Inspection: Yes normal to inspection Extrem General: Yes normal to inspection and No edema Assessment and Plan Assessment & Plan (1) Morbid obesity with BMI of 60.0-69.9, adult: Code(s): E66.01 - Morbid (severe) obesity due to excess calories; Z68.44 - Body mass index [BMI] 60.0-69.9, adult Plan: Diet and exercise (2) Impaired glucose tolerance: Code(s): R73.02 - Impaired glucose tolerance (oral) Plan: Decrease the amount of carbohydrate intake, pasta, bread, rice and potatoes are all sugar and that is aside from all the sweet stuff, remember that fruits are good but they are Sweet also. (3) Hypercholesterolemia: Code(s): E78.00 - Pure hypercholesterolemia, unspecified Plan: Avoid fried foods, chicken skin, eggs, butter margarine, pastries and meat. Be it pork or beef they have a lot of cholesterol LDL goal of less than 130 and triglyceride of less than 150. On simvastatin 5 mg at bedtime (4) GERD (gastroesophageal reflux disease): Code(s): K21.9 - Gastro-esophageal reflux disease without esophagitis Plan: Avoid the foods that causes that usually spicy foods, tomato products, juices, coffee, soda and foods that your sensitive to. After eating do not lie down, allow 3-4 hours before in lie down. And keep the head of bed above 30 degrees to avoid the acid from going up. (5) Major depression: Code(s): F32.9 - Major depressive disorder, single episode, unspecified Plan: declined treatment or referral for now (6) Neck fullness: Code(s): R22.1 - Localized swelling, mass and lump, neck Orders: Orders Free T4 (Free Thyroxine) Today R79.89 - Other specified abnormal findings of blood chemistry US thyroid Today R22.1 - Localized swelling, mass and lump, neck Thyroid Stimulating Hormone 3 Months R79.89 - Other specified abnormal findings of blood chemistry Medications: Refilled simvastatin 5 mg PO BEDTIME 90 tabs 2RF E78.00 - Pure hypercholesterolemia, unspecified Coding Level of Care Code Est Pt Level 4 (22771) Diagnoses Morbid obesity with BMI of 60.0-69.9, adult E66.01; Z68.44 Impaired glucose tolerance R73.02 Hypercholesterolemia E78.00 GERD (gastroesophageal reflux disease) K21.9 Major depression F32.9 Neck fullness R22.1 Additional Codes TAMMIE-7 Assessment Billing - TAMMIE-7 Assessment Tool: TAMMIE-7 Assessment 25398 ([id number])
[2023-12-13 16:12] VITALS: BP 138/74; PULSE 84; O2SAT 97; BMI 61.4
== END 2023-12-13 16:48 | disposition home or self-care (01) ==
PROVIDERS: PCP Internal Medicine; Visit Provider Internal Medicine
DX: R73.02 Impaired glucose tolerance (oral) (principal); E66.01 Morbid (severe) obesity due to excess calories; Z68.44 Body mass index [BMI] 60.0-69.9, adult; E78.00 Pure hypercholesterolemia, unspecified; K21.9 Gastro-esophageal reflux disease without esophagitis; F32.9 Major depressive disorder, single episode, unspecified; R22.1 Localized swelling, mass and lump, neck
CPT/HCPCS: 99214

== ENCOUNTER 2023-12-16 10:00 | Outpatient (REF) | payer BC, SELFPAY ==
--- NOTE | ~2023-12-16 | US_ITS ---
EXAMINATION: US THYROID CLINICAL INFORMATION: Localized swelling, mass and lump, neck. COMPARISON: None available. TECHNIQUE: Linear transducer grayscale and color Doppler examination with attention to the region of the thyroid. FINDINGS: SIZE: Measurements of the thyroid lobes and nodules are given in sagittal, anteroposterior and transverse dimensions respectively. Right Thyroid Lobe: 4.4 x 1.1 x 1.4 cm, volume 3.5 mL. Parenchyma: The gland echotexture is homogeneous. Thyroid vascularity is normal. Left Thyroid Lobe: 4.2 x 1.3 x 0.9 cm, volume 2.6 mL. Parenchyma: The gland echotexture is homogeneous. Thyroid vascularity is normal. Isthmus: 0.3 cm in maximum AP dimension. Estimated total number of nodules greater than or equal to 1 cm: 0. Cleaning Porter nodules are described as follows: 1. Location: Right superior. Size: 0.9 x 0.7 x 0.7 cm, volume 0.2 mL. Nodule characteristics: Composition: Cystic(0). ACR TI-RADS total points: 0 ACR TI-RADS category: 1 NODES: No lymphadenopathy is seen in the tissue surrounding the thyroid gland. US/US thyroid IMPRESSION: Small thyroid gland. No adenopathy. Solitary small right thyroid nodule. According to TI RADS criteria, no ultrasound follow-up or fine-needle aspiration recommended. ACR TI-RADS RECOMMENDATION REFERENCE: Ultrasound-guided fine-needle aspiration, followup ultrasound, no further follow up. * TR1 (0 point) and TR2 (2 points): No FNA or follow up. * TR3 (3 points): FNA if more than or equal to 2.5 cm in maximum dimension, followup ultrasound in 1, 3 and 5 years if 1.5 to 2.4 cm in maximum dimension. * TR4 (4-6 points): FNA if more than or equal to 1.5 cm in maximum dimension, followup ultrasound in 1, 2, 3 and 5 years if 1 to 1.4 cm in maximum dimension. * TR5 (more than or equal to 7 points): FNA if more than or equal to 1 cm in maximum dimension, followup ultrasound every year for 5 years if 0.5 to 0.9 cm in maximum dimension. * TR3, TR4 or TR5 nodules that are below the size threshold for followup receive no follow up.
== END 2023-12-16 10:01 | disposition home or self-care (01) ==
LOC: HO.US 10:00
PROVIDERS: PCP Internal Medicine; Visit Provider Internal Medicine
DX: R22.1 Localized swelling, mass and lump, neck (principal)
CPT/HCPCS: 76536

== ENCOUNTER 2024-04-14 06:09 | Outpatient (REF) | payer BC, SELFPAY ==
[2024-04-14 10:56] LABS: Free T4 (Free Thyroxine) 1.01 ng/dL (0.71-1.85); Thyroid Stimulating Hormone 5.01 uIU/mL (0.32-4.0)
== END 2024-04-14 06:10 | disposition home or self-care (01) ==
LOC: HO.HMGCLDS 06:09
PROVIDERS: PCP Internal Medicine; Visit Provider Internal Medicine
DX: R94.6 Abnormal results of thyroid function studies (principal)
CPT/HCPCS: 36415; 84439; 84443

== ENCOUNTER 2024-04-18 08:51 | Outpatient (AMB) | payer BC, SELFPAY ==
[2024-04-18 09:10] VITALS: BP 132/78; PULSE 79; O2SAT 98; BMI 61.4
--- NOTE | 2024-04-18 09:10 | MHC.PC.OV ---
Vital Signs 04/18/24 09:10 Height 4 ft 11 in Weight 304 lb BMI 61.4 BP 132/78 Blood Pressure Location Lt brachial Position Sitting Pulse 79 Pulse Source Pulse Oximeter Pulse Oximetry (%) 98 Oxygen Delivery Method Room Air Intake Visit Reasons: pe Allergies Sulfa (Sulfonamide Antibiotics) Allergy (Severe, Verified 12/13/23 16:12) Hives Medication List - Last Reconciled 04/18/24 by Anne Marie Boone MD betamethasone dipropionate 0.05% topical cetirizine (Zyrtec) 10 mg PO DAILY PRN hydrocortisone 2.5% topical omeprazole 20 mg PO DAILY semaglutide (weight loss) (Wegovy) 0.25 mg (0.5 mL) subcut QWEEK simvastatin 5 mg PO BEDTIME Tobacco use date assessed: 12/13/23 Dental Screening Dental Screen Date: 04/18/24 Did you have a dental visit in the last 12 months?: Yes Did you have a dental problem in the last 6 months where you did not have access to dental care?: No Was dental information given to patient?: Patient has dentist HPI pe HPI Details 53-year-old morbidly obese female with impaired glucose tolerance hypercholesterolemia GERD major depression coming in for physical exam last seen in December 2023. Patient's Cologuard test was 11/2021 , mammogram up-to-date. Patient had some neck fullness and ultrasound of the thyroid done showing small thyroid gland solitary small right thyroid nodule. Dr. 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 Mother No problems noted. Brother No problems noted. Maternal Aunt Lung cancer Brain cancer Maternal Uncle Brain cancer Maternal Uncle Alcohol abuse Mental health disorder Social History (Updated 04/18/24 @ 09:48 by Anne Marie Boone MD) Housing: House Alcohol intake: current Alcohol intake frequency: holidays/special occasions only Comment: once a month 1-2 drinks Patient Tobacco Use Status: Never used Tobacco Tobacco use type: Cigarette e-Cigarette/Vaping Use: Never Used Second Hand Smoke Exposure: No Current occupational status: employed Sexual orientation: Lesbian/Deutsch/Homosexual Gender identity: Female Cognitive needs: No Hearing needs: No Vision needs: Yes Female Reproductive History Menstrual Age of Menarche: 13 Questionnaire PHQ-9 Over the last 2 weeks, how often have you been bothered by any of the following problems? 1. Little interest or pleasure in doing things: not at all 2. Feeling down, depressed, or hopeless: not at all (pt states on and off ) 3. Trouble falling or staying asleep, or sleeping too much: not at all 4. Feeling tired or having little energy: not at all 5. Poor appetite or overeating: not at all 6. Feeling bad about yourself - or that you are a failure or have let yourself or your family down: not at all 7. Trouble concentrating on things, such as reading the newspaper or watching television: not at all 8. Moving or speaking so slowly that other people could have noticed. Or the opposite - being so fidgety or restless that you have been moving around a lot more than usual: not at all 9. Thoughts that you would be better off or of hurting yourself in some way: not at all Total score: 0 Depression Screening Interpretation: Negative Depression Screening Done: Yes 66102 - PHQ-9 Billing: Yes Source: Developed by Drs. Antolin Thomson, Marium Farfan, Nura Fernandez and colleagues, with an educational rupesh from [employer]. Thrive Questionnaire Date Thrive assessed: 12/13/23 AUDIT C Alcohol Use Questionnaire (AUDIT-C) 1. How often do you have a drink containing alcohol?: Monthly or less 2. How many drinks containing alcohol do you have on a typical day when you are drinking?: 1 or 2 3. How often do you have six or more drinks on one occasion?: Never Total Score: 1 TAMMIE-7 AMB Questionnaire TAMMIE-7 Date TAMMIE - 7 assessed: 04/18/24 Feeling nervous, anxious, or on edge: 0 = Not at all Not being able to stop or control worryin = Not at all Worrying too much about different things: 0 = Not at all Trouble relaxin = Not at all Being so restless that it is hard to sit still: 0 = Not at all Becoming easily annoyed or irritable: 0 = Not at all Feeling afraid as if something awful might happen: 0 = Not at all Total TAMMIE-7 score (0-4 normal; 5-9 mild; 10-14 moderate; 15-21 severe): 0 Source: Developed by Drs. Antolin Thomson, Marium Farfan, Nura Fernandez and colleagues, with an educational rupesh from [employer]. TAMMIE-7 Assessment Billing TAMMIE-7 Assessment Tool: TAMMIE-7 Assessment 64647 Review of Systems Const Denies poor appetite and Denies weakness Eyes Denies no additional complaints ENT Reports Normal hearing present, Denies dizziness, Denies nasal congestion, Denies tinnitus and Denies sore throat Card Denies chest pain, Denies syncope, Denies rapid heart rate and Denies dyspnea Resp Denies cough and Denies dyspnea GI Denies change in stool character, Reports constipation, Denies diarrhea, Denies nausea and Denies vomiting Denies urinary frequency, Denies difficulty voiding and Denies dysuria Neuro Reports Normal hearing present, Denies confusion, Denies dizziness, Denies syncope and Denies weakness Psych Denies confusion Physical exam (Primary Care) Vital Signs: Last Vital Signs Pulse 79 04/18/24 09:10 BP 132/78 04/18/24 09:10 Pulse Ox 98 04/18/24 09:10 Oxygen Delivery Method Room Air 04/18/24 09:10 BMI result Body Mass Index 61.4 Tobacco/Smoking Status: Tobacco use Status Tobacco use date assessed 12/13/23 04/18/24 09:20 Patient Tobacco Use Status Never used Tobacco 04/18/24 09:20 Tobacco use type Cigarette 04/18/24 09:20 e-Cigarette/Vaping Use Never Used 04/18/24 09:20 PHQ-9: PHQ-9 Score PHQ-9: Total score 0 04/18/24 09:20 Depression Screening Interpretation: Negative Thrive Assessment: Date of Thrive Assessment Date Thrive assessed 12/13/23 04/18/24 09:20 Const General: No confusion Orientation/consciousness: No confusion HENMT Head: Yes normocephalic Ears: external ears normal and TM's normal bilaterally Face and sinus: Yes normal facial exam Mouth: moist mucous membranes Throat: Yes tonsils normal Eyes Conjunctivae: conjunctivae normal Pupils: Equal, round and reactive pupils present and Pupil accommodation reflex normal Direct Ophthalmoscopy: normal light reflex Neck Neck: No lymphadenopathy Thyroid: Thyroid normal Chest Chest palpation & inspection: normal inspection of the chest Resp Effort & Inspection: normal respiratory effort and no audible wheezes Auscultation: clear to auscultation bilaterally, no crackles, no wheezes and lung sounds not diminished Cardio Rate: regular rate Rhythm: regular rhythm Peripheral pulses: radial pulses present and dorsalis pedis present GI Other: guaiac negtive Palpation (GI): no masses Auscultation: normal bowel sounds and normoactive bowel sounds Skin Other: MULTIPLE erythematous rash elbow groin thigh knee Dx PSoriasis Rashes: no rashes Neuro General: No confusion Cranial nerves: Yes Equal, round and reactive pupils present and Yes Normal hearing present Cognition (Neuro): normal cognition Gait exam (Neuro): Normal gait present Motor exam (neuro): 5/5 motor strength present throughout Deep tendon reflexes (DTR's): Right brachioradialis reflex intensity grade: 2+, Left brachioradialis reflex intensity grade: 2+, Right patellar reflex intensity grade: 2+ and Left patellar reflex intensity grade: 2+ Extrem General: No edema Assessment and Plan Assessment & Plan (1) Annual physical exam: Code(s): Z00.00 - Encounter for general adult medical examination without abnormal findings Plan: Patient is advised to eat healthy, keep well hydrated, keep active and have adequate sleep. (2) Morbid obesity with BMI of 60.0-69.9, adult: Code(s): E66.01 - Morbid (severe) obesity due to excess calories; Z68.44 - Body mass index [BMI] 60.0-69.9, adult Plan: Diet and exercise. Patient has tried multiple means with diet and exercise for more than a year but with no results of weight loss. prescription of wegovy sent. (3) Impaired glucose tolerance: Code(s): R73.02 - Impaired glucose tolerance (oral) Plan: Decrease the amount of carbohydrate intake, pasta, bread, rice and potatoes are all sugar and that is aside from all the sweet stuff, remember that fruits are good but they are Sweet also. (4) GERD (gastroesophageal reflux disease): Code(s): K21.9 - Gastro-esophageal reflux disease without esophagitis Plan: Avoid the foods that causes that usually spicy foods, tomato products, juices, coffee, soda and foods that your sensitive to. After eating do not lie down, allow 3-4 hours before in lie down. And keep the head of bed above 30 degrees to avoid the acid from going up. (5) Hypercholesterolemia: Code(s): E78.00 - Pure hypercholesterolemia, unspecified Plan: Avoid fried foods, chicken skin, eggs, butter margarine, pastries and meat. Be it pork or beef they have a lot of cholesterol LDL goal of less than 130 and triglyceride of less than 150 on simvastatin 5 mg once a day (6) Major depression: Code(s): F32.9 - Major depressive disorder, single episode, unspecified (7) Psoriasis: Code(s): L40.9 - Psoriasis, unspecified Plan: seeing Dr. Ramos and planned DELANEY (8) Hypersomnia: Code(s): G47.10 - Hypersomnia, unspecified Orders: Orders Hemoglobin A1c 3 Months R73.02 - Impaired glucose tolerance (oral) Comprehensive Met. Panel 3 Months R73.02 - Impaired glucose tolerance (oral) RT home sleep study Today G47.10 - Hypersomnia, unspecified Thyroid Stimulating Hormone 3 Months R79.89 - Other specified abnormal findings of blood chemistry Free T4 (Free Thyroxine) 3 Months R79.89 - Other specified abnormal findings of blood chemistry Medications: Refilled semaglutide (weight loss) (Wegovy) administer weeks 1 through 4 of therapy 0.25 mg (0.5 mL) subcut QWEEK 2 mL 0RF E66.01 - Morbid (severe) obesity due to excess calories, Z68.44 - Body mass index [BMI] 60.0-69.9, adult Coding Level of Care Code Est Pt Prev Care 40-64y(13567) Diagnoses Annual physical exam Z00.00 Morbid obesity with BMI of 60.0-69.9, adult E66.01; Z68.44 Impaired glucose tolerance R73.02 GERD (gastroesophageal reflux disease) K21.9 Hypercholesterolemia E78.00 Major depression F32.9 Psoriasis L40.9 Hypersomnia G47.10 Additional Codes TAMMIE-7 Assessment Billing - TAMMIE-7 Assessment Tool: TAMMIE-7 Assessment [id number] ([id number])
== END 2024-04-18 10:12 | disposition home or self-care (01) ==
PROVIDERS: PCP Internal Medicine; Visit Provider Internal Medicine
DX: Z00.00 Encounter for general adult medical examination without abnormal findings (principal); E66.01 Morbid (severe) obesity due to excess calories; Z68.44 Body mass index [BMI] 60.0-69.9, adult; R73.02 Impaired glucose tolerance (oral); K21.9 Gastro-esophageal reflux disease without esophagitis; E78.00 Pure hypercholesterolemia, unspecified; F32.9 Major depressive disorder, single episode, unspecified; L40.9 Psoriasis, unspecified; G47.10 Hypersomnia, unspecified
CPT/HCPCS: 99396

== ENCOUNTER → 2024-06-15 12:53 | Outpatient (REF) | payer BC, SELFPAY | LOC: HO.SL 12:53 | PROVIDERS: PCP Internal Medicine; Visit Provider Internal Medicine | DX: G47.33 Obstructive sleep apnea (adult) (pediatric) (principal); G47.10 Hypersomnia, unspecified | CPT/HCPCS: 95806 ==

== ENCOUNTER → 2024-06-15 13:03 | Outpatient (BNV) | payer BC, SELFPAY | PROVIDERS: PCP Internal Medicine; Visit Provider Internal Medicine | DX: G47.33 Obstructive sleep apnea (adult) (pediatric) (principal) | CPT/HCPCS: 95806 ==

== ENCOUNTER 2024-06-28 07:40 | Outpatient (AMB) | payer BC, SELFPAY ==
[2024-06-28 07:48] VITALS: BMI 62.0
--- NOTE | 2024-06-28 07:48 | MHC.OFFVIS ---
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 She is doing well with no concerns. Attempting to eat a healthy diet with calcium and vitamin D and stays active with some exercise. Denies any vaginal dryness or irritation. STI testing offered; she declined. Last pap smear; 2020, negative. Last mammogram; 2022. ColoGard is up to date. Denies any family history of breast, ovarian or colon cancer. 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 Mother No problems noted. Brother No problems noted. Maternal Aunt Lung cancer Brain cancer Maternal Uncle Brain cancer Maternal Uncle Alcohol abuse Mental health disorder Social History (Updated 04/18/24 @ 09:48 by Anne Marie Boone MD) Housing: House Alcohol intake: current Alcohol intake frequency: holidays/special occasions only Comment: once a month 1-2 drinks Patient Tobacco Use Status: Never used Tobacco Tobacco use type: Cigarette e-Cigarette/Vaping Use: Never Used Second Hand Smoke Exposure: No Current occupational status: employed Sexual orientation: Lesbian/Deutsch/Homosexual Gender identity: Female Cognitive needs: No Hearing needs: No Vision needs: Yes Female Reproductive History Menstrual Age of Menarche: 13 Total pregnancies: 0 Date of last pap smear: 09/03/21 (neg pap and hpv) History of abnormal pap smear: Yes (hx abn pap in 90's) Date of Mammogram: 07/10/23 (Birad 1) Review of Systems Const All systems reviewed & are unremarkable except as noted in HPI and below Reports as per HPI Eyes Reports no additional complaints ENT Reports no additional complaints Card Reports no additional complaints Resp Reports no additional complaints GI Reports as per HPI and Reports no additional complaints Reports as per HPI Musc Reports no additional complaints Skin/Breast Reports as per HPI Neuro Reports no additional complaints Psych Reports no additional complaints Endo Reports no additional complaints Fernando/Lymph Reports no additional complaints Aller/Immun Reports no additional complaints Physical Exam Vital Signs: BMI result Body Mass Index 62.0 Const General: cooperative, healthy appearing, no acute distress, well developed and alert Orientation/consciousness: patient oriented x3 HEENT Head: Yes normal to inspection Eyes General: appearance normal, both eyes and all related structures Neck Neck: Yes normal visual inspection Thyroid: Thyroid normal Chest Chest palpation & inspection: normal inspection of the chest and other (no puckering, dimpling, peau de orange, retraction, discharge, masses) Breast/axilla inspection: normal inspection of the breasts Breast/axilla palpation: normal palpation of the breasts Resp Effort & Inspection: normal respiratory effort GI Inspection: Yes normal to inspection and Yes obesity Palpation (GI): Soft to palpation Rectal Exam - Female: deferred Other: Large mons pannus with the edema, bilateral rash groins with medicated areas General: Yes bladder normal to palpation External Female Exam: normal external appearance and normal appearance of the urethra Speculum Exam - Vagina: normal appearance of the vagina, normal palpation, normal vaginal discharge and vagina atrophic Speculum Exam - Cervix: normal appearance of the cervix and normal palpation Bimanual exam- vagina & uterus: normal bimanual exam, normal palpation, uterine size normal, bladder normal to palpation, normal palpation and non-tender Bimanual Exam- Adnexa, other: no masses Skin General skin exam: no rashes or lesions noted Rashes: no rashes Neuro General: patient oriented x3 Cognition (Neuro): normal cognition Extrem General: Yes normal to inspection Psych Attitude: cooperative Thought process: Normal thought process present Assessment & Plan Assessment & Plan (1) Encounter for well woman exam with routine gynecological exam: Code(s): Z01.419 - Encounter for gynecological examination (general) (routine) without abnormal findings Category: Medical Plan Discussed: Current recommendations for pap smears per ASCCP guidelines. Breast awareness, periodic self breast exams and yearly mammogram. Maintain a healthy lifestyle, well balanced diet including Calcium 1,200 mg and Vitamin D 600 IU daily, and routine exercise. Contact the office with any postmenopausal bleeding. Patient verbalizes understanding and agrees to the plan of care. She was given opportunity to ask questions and all questions were answered to the best of my ability. RTO in 1 year for annual business development coordinator exam. This note is constructed using voice recognition software. While every effort has been made to ensure accuracy, supervisor show operations errors may have been included. Coding Level of Care Code Est Pt Prev Care 40-64y(14132) Diagnoses Encounter for well woman exam with routine gynecological exam Z01.419
== END 2024-06-28 09:09 | disposition home or self-care (01) ==
PROVIDERS: PCP Internal Medicine; Visit Provider Advanced Practice Midwife
DX: Z01.419 Encounter for gynecological examination (general) (routine) without abnormal findings (principal)
CPT/HCPCS: 99396

== ENCOUNTER → 2024-06-28 07:40 | Outpatient (BNVA) | payer BC, SELFPAY | PROVIDERS: PCP Internal Medicine; Visit Provider Advanced Practice Midwife ==

== ENCOUNTER 2024-07-14 06:13 | Outpatient (REF) | payer BC, SELFPAY ==
[2024-07-14 10:56] LABS: Estimated Average Glucose 123 mg/dL; Hemoglobin A1C 131.8424 umol/L; Hemoglobin A1c % 5.9 % (<6.0)
[2024-07-14 12:10] LABS: Alanine Aminotransferase 13 U/L (0-31); Albumin Level 3.9 g/dL (3.5-5.0); Alkaline Phosphatase 92 U/L (39-117); Anion Gap 15 (12-20); Aspartate Amino Transferase 23 U/L (5-31); Bilirubin Total 0.4 mg/dL (0.0-1.0); Blood Urea Nitrogen 11 mg/dL (9-16); Calcium 9.2 mg/dL (8.4-10.2); Carbon Dioxide 25 mmol/L (22-29); Chloride 106 mmol/L (96-108); Estimated Glomerular Filt Rate > 60; Glucose Random 113 mg/dL (60-115); Potassium 4.3 mmol/L (3.3-5.1); Sodium 142 mmol/L (135-145); Total Protein 6.8 g/dL (6.5-8.0)
[2024-07-14 12:35] LABS: Free T4 (Free Thyroxine) 1.07 ng/dL (0.71-1.85); Thyroid Stimulating Hormone 4.48 uIU/mL (0.32-4.0)
== END 2024-07-14 06:14 | disposition home or self-care (01) ==
LOC: HO.HMGCLDS 06:13
PROVIDERS: PCP Internal Medicine; Visit Provider Internal Medicine
DX: R73.02 Impaired glucose tolerance (oral) (principal); R79.89 Other specified abnormal findings of blood chemistry
CPT/HCPCS: 36415; 80053; 83036; 84439; 84443

== ENCOUNTER 2024-07-18 07:18 | Outpatient (REF) | payer BC, SELFPAY ==
--- NOTE | ~2024-07-18 | MM_ITS ---
EXAMINATION: MM SCREENING DIGITAL BREAST TOMOSYNTHESIS, BILATERAL CLINICAL INFORMATION: Screening. Asymptomatic. COMPARISON: Mammography: Comparison is made with available priors TECHNIQUE: Digital breast mammography with tomosynthesis is performed in both the craniocaudal and mediolateral oblique views along with computer-aided detection (CAD). FINDINGS: There are scattered areas of fibroglandular density (ACR BI-RADS breast composition Category b). There are no significant masses, abnormal calcifications, or other abnormalities. MM/MM tomosynthesis screening BI IMPRESSION: No mammographic evidence of malignancy. ASSESSMENT: BI-RADS BI-RADS 1 - Negative RECOMMENDATION: Routine annual mammography screening. 1 year F/U This examination should not preclude the clinical evaluation of a suspicious palpable abnormality. This patient's information was entered into a reminder system with a target due date for their next mammogram. Electronically signed by: Aggie Britton DO 07/26/2024 12:07 PM [facility]
== END 2024-07-18 07:19 | disposition home or self-care (01) ==
LOC: HO.MAMMO 07:18
PROVIDERS: PCP Internal Medicine; Visit Provider Internal Medicine
DX: Z12.31 Encounter for screening mammogram for malignant neoplasm of breast (principal)
CPT/HCPCS: 77063; 77067

== ENCOUNTER → 2024-07-18 07:30 | Outpatient (BNV) | payer BC, SELFPAY | PROVIDERS: PCP Internal Medicine; Visit Provider Internal Medicine | DX: Z12.31 Encounter for screening mammogram for malignant neoplasm of breast (principal) | CPT/HCPCS: 77063; 77067 ==

== ENCOUNTER 2024-07-18 15:51 | Outpatient (AMB) | payer BC, SELFPAY ==
--- NOTE | 2024-07-18 15:56 | MHC.PC.OV ---
Vital Signs 07/18/24 16:02 Height 4 ft 11 in Weight 308 lb BMI 62.2 BP 136/74 Blood Pressure Location Lt brachial Position Sitting Pulse 76 Pulse Source Pulse Oximeter Pulse Oximetry (%) 98 Oxygen Delivery Method Room Air Intake Visit Reasons: 3 Month Follow Up Intake Note: Pt has some questions regarding medication. Beater Engineer Required: No Accompanied by: Self / Same As Patient Allergies Sulfa (Sulfonamide Antibiotics) Allergy (Severe, Verified 07/18/24 16:04) Hives Tobacco use date assessed: 12/13/23 Dental Screening Dental Screen Date: 04/18/24 HPI 3 Month Follow Up HPI Details 54-year-old morbidly obese female with impaired glucose tolerance GERD hypercholesterolemia psoriasis and major depression last seen in April 2024. Cologua mammogram due this month. Patient had a sleep study done 06/15/2024 results showing mild with an AHI of 5.5 positional borderline nocturnal hypoxemia with an average O2 of 90%. Patient follows up with Dermatology also seen in June 06 diagnosis of psoriasis with arthritis Taltz treatment . 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 Mother No problems noted. Brother No problems noted. Maternal Aunt Lung cancer Brain cancer Maternal Uncle Brain cancer Maternal Uncle Alcohol abuse Mental health disorder Social History Housing: House Alcohol intake: current Alcohol intake frequency: holidays/special occasions only Comment: once a month 1-2 drinks Patient Tobacco Use Status: Never used Tobacco Tobacco use type: Cigarette e-Cigarette/Vaping Use: Never Used Second Hand Smoke Exposure: No Current occupational status: employed Sexual orientation: Lesbian/Deutsch/Homosexual Gender identity: Female Cognitive needs: No Hearing needs: No Vision needs: Yes Female Reproductive History Menstrual Age of Menarche: 13 Questionnaire Thrive Questionnaire Date Thrive assessed: 12/13/23 AUDIT C Alcohol Use Questionnaire (AUDIT-C) 3. How often do you have six or more drinks on one occasion?: Never Total Score: 0 TAMMIE-7 AMB Questionnaire TAMMIE-7 Date TAMMIE - 7 assessed: 04/18/24 Source: Developed by Drs. Antolin Thomson, Marium Farfan, Nura Fernandez and colleagues, with an educational rupesh from [employer]. Physical exam (Primary Care) Vital Signs: Last Vital Signs Pulse 76 07/18/24 16:02 BP 136/74 07/18/24 16:02 Pulse Ox 98 07/18/24 16:02 Oxygen Delivery Method Room Air 07/18/24 16:02 BMI result Body Mass Index 62.2 Tobacco/Smoking Status: Tobacco use Status Tobacco use date assessed 12/13/23 07/18/24 15:57 Patient Tobacco Use Status Never used Tobacco 07/18/24 15:57 Tobacco use type Cigarette 07/18/24 15:57 e-Cigarette/Vaping Use Never Used 07/18/24 15:57 Thrive Assessment: Date of Thrive Assessment Date Thrive assessed 12/13/23 07/18/24 15:57 Const General: alert; No acute distress Eyes Conjunctivae: conjunctivae normal Resp Auscultation: clear to auscultation bilaterally Cardio Rate: regular rate Rhythm: regular rhythm GI Inspection: Yes normal to inspection Extrem General: Yes normal to inspection and No edema Coding Level of Care Code Est Pt Level 4 (30958) Diagnoses Morbid obesity with BMI of 60.0-69.9, adult E66.01; Z68.44 Impaired glucose tolerance R73.02 Hypercholesterolemia E78.00 TSH elevation R79.89 Psoriasis L40.9 Gastroesophageal reflux disease without esophagitis K21.9 Esophagitis presence: without esophagitis Assessment & Plan Assessment & Plan (1) Morbid obesity with BMI of 60.0-69.9, adult: Code(s): E66.01 - Morbid (severe) obesity due to excess calories; Z68.44 - Body mass index [BMI] 60.0-69.9, adult Category: Medical Plan: Diet and exercise patient was prescribed wegovy but insurance limitation (2) Impaired glucose tolerance: Code(s): R73.02 - Impaired glucose tolerance (oral) Category: Medical Plan: Decrease the amount of carbohydrate intake, pasta, bread, rice and potatoes are all sugar and that is aside from all the sweet stuff, remember that fruits are good but they are Sweet also. (3) Hypercholesterolemia: Code(s): E78.00 - Pure hypercholesterolemia, unspecified Category: Medical Plan: Avoid fried foods, chicken skin, eggs, butter margarine, pastries and meat. Be it pork or beef they have a lot of cholesterol (4) TSH elevation: Code(s): R79.89 - Other specified abnormal findings of blood chemistry Category: Medical Plan: Continuing to monitor (5) Psoriasis: Code(s): L40.9 - Psoriasis, unspecified Category: Medical Plan: Patient follows up with Dermatology and on Taltz treatment (6) GERD (gastroesophageal reflux disease): Code(s): K21.9 - Gastro-esophageal reflux disease without esophagitis Category: Medical Qualifiers: Esophagitis presence: without esophagitis Qualified Code(s): K21.9 - Gastro-esophageal reflux disease without esophagitis Plan: Avoid the foods that causes that usually spicy foods, tomato products, juices, coffee, soda and foods that your sensitive to. After eating do not lie down, allow 3-4 hours before in lie down. And keep the head of bed above 30 degrees to avoid the acid from going up.
[2024-07-18 16:02] VITALS: BP 136/74; PULSE 76; O2SAT 98; BMI 62.2
== END 2024-07-18 16:32 | disposition home or self-care (01) ==
PROVIDERS: PCP Internal Medicine; Visit Provider Internal Medicine
DX: E66.01 Morbid (severe) obesity due to excess calories (principal); Z68.44 Body mass index [BMI] 60.0-69.9, adult; R73.02 Impaired glucose tolerance (oral); E78.00 Pure hypercholesterolemia, unspecified; R79.89 Other specified abnormal findings of blood chemistry; L40.9 Psoriasis, unspecified; K21.9 Gastro-esophageal reflux disease without esophagitis

== ENCOUNTER 2024-10-26 06:09 | Outpatient (REF) | payer BC, SELFPAY ==
[2024-10-26 10:43] LABS: Free T4 (Free Thyroxine) 1.09 ng/dL (0.71-1.85)
== END 2024-10-26 06:10 | disposition home or self-care (01) ==
LOC: HO.HMGCLDS 06:09
PROVIDERS: PCP Internal Medicine; Visit Provider Internal Medicine
DX: R79.89 Other specified abnormal findings of blood chemistry (principal)
CPT/HCPCS: 36415; 84439

== ENCOUNTER 2024-10-31 15:41 | Outpatient (AMB) | payer BC, SELFPAY ==
--- NOTE | 2024-10-31 15:42 | A.OFFPC_ITS ---
Vital Signs 10/31/24 15:46 Height 4 ft 11 in Weight 303 lb BMI 61.2 BP 128/76 Blood Pressure Location Lt brachial Position Sitting Pulse 89 Pulse Source Pulse Oximeter Pulse Oximetry (%) 96 Oxygen Delivery Method Room Air Intake Visit Reasons: obesity Server Support Technician Required: No Accompanied by: Self / Same As Patient Allergies Sulfa (Sulfonamide Antibiotics) Allergy (Severe, Verified 10/31/24 15:44) Hives Medication List - Last Reconciled 10/31/24 by Anne Marie Boone MD cetirizine (Zyrtec) 10 mg PO DAILY PRN ixekizumab 80 mg subcut Q2W omeprazole 20 mg PO DAILY semaglutide (weight loss) 1 mg (0.5 mL) subcut QWEEK 30 days simvastatin 5 mg PO BEDTIME Tobacco use date assessed: 10/31/24 Dental Screening Dental Screen Date: 10/31/24 Did you have a dental visit in the last 12 months?: Yes Did you have a dental problem in the last 6 months where you did not have access to dental care?: No Was dental information given to patient?: Patient has dentist HPI obesity HPI Details 3 days ago- stomach cramping and diarrhe a- vomiting is better, PFSH Medical History (Updated 10/31/24 @ 15:58 by Anne Marie Boone MD) Neck fullness Hypersomnia Palpitation Morbid obesity with BMI of 60.0-69.9, adult Cervical cancer screening Breast cancer screening by mammogram Colon cancer screening 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 Mother No problems noted. Brother No problems noted. Maternal Aunt Lung cancer Brain cancer Maternal Uncle Brain cancer Maternal Uncle Alcohol abuse Mental health disorder Social History Housing: House Alcohol intake: current Alcohol intake frequency: holidays/special occasions only Comment: once a month 1-2 drinks Patient Tobacco Use Status: Never used Tobacco Tobacco use type: Cigarette e-Cigarette/Vaping Use: Never Used Second Hand Smoke Exposure: No Current occupational status: employed Sexual orientation: Lesbian/Deutsch/Homosexual Gender identity: Female Cognitive needs: No Hearing needs: No Vision needs: Yes Female Reproductive History Menstrual Age of Menarche: 13 Questionnaire PHQ-9 Over the last 2 weeks, how often have you been bothered by any of the following problems? 1. Little interest or pleasure in doing things: not at all 2. Feeling down, depressed, or hopeless: several days 3. Trouble falling or staying asleep, or sleeping too much: not at all 4. Feeling tired or having little energy: not at all 5. Poor appetite or overeating: not at all 6. Feeling bad about yourself - or that you are a failure or have let yourself or your family down: not at all 7. Trouble concentrating on things, such as reading the newspaper or watching television: not at all 8. Moving or speaking so slowly that other people could have noticed. Or the opposite - being so fidgety or restless that you have been moving around a lot more than usual: not at all 9. Thoughts that you would be better off or of hurting yourself in some way: not at all Total score: 1 Source: Developed by Drs. Antolin Thomson, Marium Farfan, Nura Fernandez and colleagues, with an educational rupesh from [employer]. Thrive Questionnaire Date Thrive assessed: 10/31/24 I am a: Patient What is your living situation today?: I have a steady place to live Within the past 12 months, did the food you bought not last and you didn't have the money to get more?: Never true Within the past 12 months, did you worry whether your food would run out before you got money to buy more?: Never true Do you have trouble paying for medicines?: No Do you have trouble getting transportation to medical appointments?: No Do you have trouble paying your heating and electricity bill?: No Do you have trouble taking care of your child, family member or friend?: No Do you have trouble with day-to-day activities such as bathing, preparing meals, shopping, managing finances, etc.?: No Are you currently unemployed and looking for a job?: No Are you interested in more education?: No Please select the resources that you would like help with: None Currently or been in a relationship where the following occur: No concerns reported THRIVE Score: 0 AUDIT C Alcohol Use Questionnaire (AUDIT-C) 1. How often do you have a drink containing alcohol?: Monthly or less 2. How many drinks containing alcohol do you have on a typical day when you are drinking?: 1 or 2 3. How often do you have six or more drinks on one occasion?: Never Total Score: 1 TAMMIE-7 AMB Questionnaire TAMMIE-7 Date TAMMIE - 7 assessed: 10/31/24 Feeling nervous, anxious, or on edge: 0 = Not at all Not being able to stop or control worryin = Not at all Worrying too much about different things: 0 = Not at all Trouble relaxin = Not at all Being so restless that it is hard to sit still: 0 = Not at all Becoming easily annoyed or irritable: 0 = Not at all Feeling afraid as if something awful might happen: 0 = Not at all Total TAMMIE-7 score (0-4 normal; 5-9 mild; 10-14 moderate; 15-21 severe): 0 Source: Developed by Drs. Antolin Thomson, Marium Farfan, Nura Fernandez and colleagues, with an educational rupesh from [employer]. Physical exam (Primary Care) BMI result Body Mass Index 61.2 Tobacco/Smoking Status: Tobacco use Status Tobacco use date assessed 12/13/23 10/31/24 15:46 Patient Tobacco Use Status Never used Tobacco 10/31/24 15:46 Tobacco use type Cigarette 10/31/24 15:46 e-Cigarette/Vaping Use Never Used 10/31/24 15:46 PHQ-9: PHQ-9 Score PHQ-9: Total score 1 10/31/24 15:46 Thrive Assessment: Date of Thrive Assessment Date Thrive assessed 10/31/24 10/31/24 15:46 Currently or been in a relationship where the following occur: No concerns reported Const General: alert; No acute distress Eyes Conjunctivae: conjunctivae normal Resp Auscultation: clear to auscultation bilaterally Cardio Rate: regular rate Rhythm: regular rhythm GI Inspection: Yes normal to inspection Extrem General: Yes normal to inspection and No edema Coding Level of Care Code Est Pt Level 4 (70216) Diagnoses Morbid obesity with BMI of 60.0-69.9, adult E66.01; Z68.44 Gastroesophageal reflux disease without esophagitis K21.9 Esophagitis presence: without esophagitis Impaired glucose tolerance R73.02 Hypercholesterolemia E78.00 Acute gastroenteritis K52.9 Assessment & Plan Assessment & Plan (1) Morbid obesity with BMI of 60.0-69.9, adult: Code(s): E66.01 - Morbid (severe) obesity due to excess calories; Z68.44 - Body mass index [BMI] 60.0-69.9, adult Category: Medical Plan: Diet and exercise prescription for go he was sent in and insurance allowed. (2) GERD (gastroesophageal reflux disease): Code(s): K21.9 - Gastro-esophageal reflux disease without esophagitis Category: Medical Qualifiers: Esophagitis presence: without esophagitis Qualified Code(s): K21.9 - Gastro-esophageal reflux disease without esophagitis Plan: Avoid the foods that causes that usually spicy foods, tomato products, juices, coffee, soda and foods that your sensitive to. After eating do not lie down, allow 3-4 hours before in lie down. And keep the head of bed above 30 degrees to avoid the acid from going up. (3) Impaired glucose tolerance: Code(s): R73.02 - Impaired glucose tolerance (oral) Category: Medical Plan: Decrease the amount of carbohydrate intake, pasta, bread, rice and potatoes are all sugar and that is aside from all the sweet stuff, remember that fruits are good but they are Sweet also. (4) Hypercholesterolemia: Code(s): E78.00 - Pure hypercholesterolemia, unspecified Category: Medical Plan: Avoid fried foods, chicken skin, eggs, butter margarine, pastries and meat. Be it pork or beef they have a lot of cholesterol on simvastatin 5 mg once a day. (5) Acute gastroenteritis: Code(s): K52.9 - Noninfective gastroenteritis and colitis, unspecified Category: Medical Plan History of Present Illness The patient is a 54-year-old female presenting with gastrointestinal symptoms and management of Wegovy treatment. She reported experiencing stomach cramping, vomiting, and diarrhea that began on a recent Wednesday. The vomiting subsided by Wednesday, but diarrhea has persisted. She was able to tolerate some chicken broth and saltines last night without issues. However, after consuming Jello today, diarrhea resumed. The patient has been using Pepto Bismol intermittently but ceased overuse concerns. She denies any specific abdominal pain. The symptoms did not initiate after a change in medication dosage. The patient also has a history of taking Wegovy for weight management, with a noted weight decrease of 5 pounds since the last visit. Current symptoms appear not directly related to the medication dosage change. She has recently completed a blood workup related to her thyroid, for which results indicate thyroid function is normal. Health Maintenance - Last Cologuard screening: November 2021 - Mammogram: Up-to-date - Medication management: Simvastatin 5 mg daily - Weight management: Diet and exercise program, Wegovy prescribed Social History - Dietary intake: Recent consumption of chicken broth, saltines, and Jello - Exercise and weight management: Following prescribed Wegovy protocol Review of Systems - Gastrointestinal: Reports stomach cramping, vomiting (subsided), persistent diarrhea - Musculoskeletal: No specific areas of abdominal pain reported Physical Exam Results - Labs: Recent thyroid function tests indicated normal thyroid activity Plan - Continue monitoring gastric symptoms; recommend electrolyte-rich fluids and bland diet to manage symptoms and prevent dehydration. - Prescribe Wegovy 1 mg/week, adhering to weight management protocol with fol low-up in three weeks if weight is not reducing. - Continue current simvastatin for hypercholesterolemia. - Encourage patient to maintain hydration with at least four 16-ounce bottles of water daily, ensuring higher intake if diarrhea persists. - Continue antidepressant and monitor for changes in mental health. - Advised repeat thyroid function tests if indicated by symptoms. Patient was informed and verbally consented to the use of an ambient scribe for clinic note documentation during this visit. Discussion Notes During the visit, I discussed the management of her persistent diarrhea, em phasizing the importance of preventing dehydration through increased fluid intake. We reviewed the use of medications like Imodium if critical but stressed the body's need to expel the stomach bug naturally. I explained the risks of dehydration and advised on consuming electrolyte-rich fluids. For her Wegovy treatment, I informed her of the dosage increase to 1 mg/week and instructed her to contact me if the weight does not show a reduction in three weeks. Discussions regarding her health maintenance included confirming her last Cologuard test and maintaining her current medication regimen. I provided guidance on watching for any specific localized abdominal pain and reassured her concerning normal thyroid function. Patient Instructions - Keep hydrated: Drink at least four 16-ounce bottles of water daily, more if diarrhea continues. - Follow a bland diet consuming toast, rice, bananas, apples, and applesauce. - Continue Wegovy administration, now at 1 mg weekly. - Contact my office in three weeks if no weight change. - Monitor for localized abdominal pain; seek immediate attention if developed. - Consume electrolytes through drinks like Gatorade to manage fatigue. - Schedule follow-up blood work fasting in three months. Orders: Orders Complete Blood Count Auto Diff 3 Months K21.9 - Gastro-esophageal reflux disease without esophagitis Comprehensive Met. Panel 3 Months K21.9 - Gastro-esophageal reflux disease without esophagitis Free T4 (Free Thyroxine) 3 Months K21.9 - Gastro-esophageal reflux disease without esophagitis Hemoglobin A1c 3 Months K21.9 - Gastro-esophageal reflux disease without esophagitis Thyroid Stimulating Hormone 3 Months K21.9 - Gastro-esophageal reflux disease without esophagitis Lipid Panel 3 Months E78.00 - Pure hypercholesterolemia, unspecified, K21.9 - Gastro-esophageal reflux disease without esophagitis Vitamin B12 and Folate 3 Months K21.9 - Gastro-esophageal reflux disease without esophagitis Vitamin D 25-OH Total 3 Months K21.9 - Gastro-esophageal reflux disease without esophagitis Magnesium 3 Months K21.9 - Gastro-esophageal reflux disease without esophagitis Medications: Changed From Wegovy (semaglutide (weight loss)) administer weeks 1 through 4 of therapy 0.5 mg (0.5 mL) subcut QWEEK 30 days 2 mL 1RF NS E66.01 - Morbid (severe) obesity due to excess calories, Z68.44 - Body mass index [BMI] 60.0-69.9, adult To semaglutide (weight loss) administer weeks 1 through 4 of therapy 1 mg (0.5 mL) subcut QWEEK 30 days 2.5 mL 1RF E66.01 - Morbid (severe) obesity due to excess calories, Z68.44 - Body mass index [BMI] 60.0-69.9, adult
[2024-10-31 15:46] VITALS: BP 128/76; PULSE 89; O2SAT 96; BMI 61.2
== END 2024-10-31 16:07 | disposition home or self-care (01) ==
PROVIDERS: PCP Internal Medicine; Visit Provider Internal Medicine
DX: E66.01 Morbid (severe) obesity due to excess calories (principal); Z68.44 Body mass index [BMI] 60.0-69.9, adult; K21.9 Gastro-esophageal reflux disease without esophagitis; R73.02 Impaired glucose tolerance (oral); E78.00 Pure hypercholesterolemia, unspecified; K52.9 Noninfective gastroenteritis and colitis, unspecified

== ENCOUNTER 2025-02-17 07:34 | Outpatient (REF) | payer BC, SELFPAY ==
[2025-02-17 08:02] LABS: MANUAL DIFF FLAG NO
[2025-02-17 08:14] LABS: Basophils Absolute Auto 0.1 X10*3/uL (0.0-0.2); Basophils Percent Auto 1.2 % (0-2); Eosinophils Absolute Auto 0.5 X10*3/uL (0.0-0.4); Eosinophils Percent Auto 8.3 % (0-4); Hemoglobin 13.1 g/dl (12.0-16.0); Imm Gran Abs Auto 0.01 X10*3/uL (0.00-0.03); Imm Gran Pct Auto 0.2 % (0.0-0.4); Lymphocytes Absolute Auto 2.6 X10*3/uL (1.2-4.9); Lymphocytes Percent Auto 43.5 % (20-40); Mean Corpuscular Hemoglobin 25.9 pg (27.0-33.0); Mean Corpuscular Volume 81.2 fL (80.0-98.0); Mean Platelet Volume 10.6 fL (9.4-12.3); Monocytes Absolute Auto 0.6 X10*3/uL (0.1-1.2); Monocytes Percent Auto 10.2 % (2-11); Neutrophils Absolute Auto 2.2 x10*3/uL (2.0-8.3); Neutrophils Percent Auto 36.6 % (45-73); Platelet Count 359 X10*3/uL (160-400); Red Blood Count 5.05 X10*6/uL (4.20-5.50); Red Cell Distribution Width 15.4 % (11.0-16.0); White Blood Count 5.9 X10*3/uL (4.8-10.8)
[2025-02-17 08:35] LABS: Estimated Average Glucose 120 mg/dL; Hemoglobin A1c % 5.8 % (<6.0)
[2025-02-17 08:36] LABS: Alanine Aminotransferase 11 U/L (0-31); Albumin Level 4.2 g/dL (3.5-5.0); Alkaline Phosphatase 105 U/L (39-117); Anion Gap 14 (12-20); Aspartate Amino Transferase 26 U/L (5-31); Bilirubin Total 0.4 mg/dL (0.0-1.0); Blood Urea Nitrogen 8 mg/dL (9-16); Calcium 9.3 mg/dL (8.4-10.2); Carbon Dioxide 27 mmol/L (22-29); Chloride 104 mmol/L (96-108); Cholesterol 147 mg/dL (<200); Estimated Glomerular Filt Rate > 60; Glucose Random 101 mg/dL (60-115); HDL Cholesterol 48 mg/dL (>40); LDL Cholesterol Calculated 81 mg/dL (<100); Magnesium 1.9 mg/dL (1.6-2.6); Potassium 3.8 mmol/L (3.3-5.1); Sodium 141 mmol/L (135-145); Triglycerides 93 mg/dL (<150)
[2025-02-17 08:58] LABS: Free T4 (Free Thyroxine) 1.17 ng/dL (0.71-1.85); Vitamin D 25-OH Total 14.2 ng/mL (>30)
[2025-02-17 09:02] LABS: Folate 4.2 ng/mL (> or = 4.0); Vitamin B12 436 pg/mL (200-900)
== END 2025-02-17 07:35 | disposition home or self-care (01) ==
LOC: HO.LAB 07:34
PROVIDERS: PCP Internal Medicine; Visit Provider Internal Medicine
DX: K21.9 Gastro-esophageal reflux disease without esophagitis (principal); E78.00 Pure hypercholesterolemia, unspecified; Z13.1 Encounter for screening for diabetes mellitus
CPT/HCPCS: 36415; 80053; 80061; 82306; 82607; 82746; 83036; 83735; 84439; 84443; 85025

== ENCOUNTER 2025-02-21 08:24 | Outpatient (AMB) | payer BC, SELFPAY ==
[2025-02-21 08:26] VITALS: BP 126/78; PULSE 70; O2SAT 98; BMI 60.3
--- NOTE | 2025-02-21 08:26 | MHC.PC.OV ---
Vital Signs 02/21/25 08:26 Height 4 ft 11 in Weight 298 lb 8.094 oz BMI 60.3 BP 126/78 Blood Pressure Location Lt brachial Position Sitting Pulse 70 Pulse Source Pulse Oximeter Pulse Oximetry (%) 98 Oxygen Delivery Method Room Air Intake Visit Reasons: obesity Hospital Mortician Required: No Accompanied by: Self / Same As Patient Allergies Sulfa (Sulfonamide Antibiotics) Allergy (Severe, Verified 02/21/25 08:28) Hives Medication List - Last Reconciled 02/21/25 by Anne Marie Boone MD cetirizine (Zyrtec) 10 mg PO DAILY PRN ixekizumab 80 mg subcut .once a month omeprazole 20 mg PO DAILY semaglutide (weight loss) 1 mg (0.5 mL) subcut QWEEK 30 days simvastatin 5 mg PO BEDTIME Tobacco use date assessed: 02/21/25 Dental Screening Dental Screen Date: 02/21/25 Did you have a dental visit in the last 12 months?: Yes Did you have a dental problem in the last 6 months where you did not have access to dental care?: No Was dental information given to patient?: Patient has dentist HPI obesity HPI Details 54-year-old morbidly obese female noted 5 lb weight loss with a history of GERD psoriasis impaired glucose tolerance hypercholesterolemia depression coming in for follow-up last seen October 2024 review of the notes patient had Cologuard negative in November 2021 due for this yea review of the notes r mammogram. 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 Mother No problems noted. Brother No problems noted. Maternal Aunt Lung cancer Brain cancer Maternal Uncle Brain cancer Maternal Uncle Alcohol abuse Mental health disorder Social History Housing: House Alcohol intake: current Alcohol intake frequency: holidays/special occasions only Comment: once a month 1-2 drinks Patient Tobacco Use Status: Never used Tobacco e-Cigarette/Vaping Use: Never Used Second Hand Smoke Exposure: No service: No Current occupational status: employed Current occupational exposures/hazards: No Sexual orientation: Lesbian/Deutsch/Homosexual Gender identity: Female Cognitive needs: No Hearing needs: No Vision needs: Yes Female Reproductive History Menstrual Age of Menarche: 13 Questionnaire PHQ-9 Over the last 2 weeks, how often have you been bothered by any of the following problems? 1. Little interest or pleasure in doing things: not at all 2. Feeling down, depressed, or hopeless: not at all 3. Trouble falling or staying asleep, or sleeping too much: not at all 4. Feeling tired or having little energy: not at all 5. Poor appetite or overeating: not at all 6. Feeling bad about yourself - or that you are a failure or have let yourself or your family down: not at all 7. Trouble concentrating on things, such as reading the newspaper or watching television: not at all 8. Moving or speaking so slowly that other people could have noticed. Or the opposite - being so fidgety or restless that you have been moving around a lot more than usual: not at all 9. Thoughts that you would be better off or of hurting yourself in some way: not at all Total score: 0 Source: Developed by Drs. Antolin Thomson, Marium Farfan, Nura Fernandez and colleagues, with an educational rupesh from [employer]. Thrive Questionnaire Date Thrive assessed: 02/21/25 I am a: Patient What is your living situation today?: I have a steady place to live Within the past 12 months, did the food you bought not last and you didn't have the money to get more?: Never true Within the past 12 months, did you worry whether your food would run out before you got money to buy more?: Never true Do you have trouble paying for medicines?: No Do you have trouble getting transportation to medical appointments?: No Do you have trouble paying your heating and electricity bill?: No Do you have trouble taking care of your child, family member or friend?: No Do you have trouble with day-to-day activities such as bathing, preparing meals, shopping, managing finances, etc.?: No Are you currently unemployed and looking for a job?: No Are you interested in more education?: No Please select the resources that you would like help with: None Currently or been in a relationship where the following occur: No concerns reported THRIVE Score: 0 AUDIT C Alcohol Use Questionnaire (AUDIT-C) 1. How often do you have a drink containing alcohol?: Monthly or less 3. How often do you have six or more drinks on one occasion?: Never Total Score: 1 TAMMIE-7 AMB Questionnaire TAMMIE-7 Date TAMMIE - 7 assessed: 02/21/25 Feeling nervous, anxious, or on edge: 0 = Not at all Not being able to stop or control worryin = Not at all Worrying too much about different things: 0 = Not at all Trouble relaxin = Not at all Being so restless that it is hard to sit still: 0 = Not at all Becoming easily annoyed or irritable: 0 = Not at all Feeling afraid as if something awful might happen: 0 = Not at all Total TAMMIE-7 score (0-4 normal; 5-9 mild; 10-14 moderate; 15-21 severe): 0 Source: Developed by Drs. Antolin Thomson, Marium Farfan, Nura Fernandez and colleagues, with an educational rupesh from [employer]. Physical exam (Primary Care) Vital Signs: Last Vital Signs Pulse 70 02/21/25 08:26 BP 126/78 02/21/25 08:26 Pulse Ox 98 02/21/25 08:26 Oxygen Delivery Method Room Air 02/21/25 08:26 BMI result Body Mass Index 60.3 Tobacco/Smoking Status: Tobacco use Status Tobacco use date assessed 02/21/25 02/21/25 08:34 Patient Tobacco Use Status Never used Tobacco 02/21/25 08:34 Tobacco use type 10/31/24 16:07 e-Cigarette/Vaping Use Never Used 02/21/25 08:34 PHQ-9: PHQ-9 Score PHQ-9: Total score 0 02/21/25 08:34 Thrive Assessment: Date of Thrive Assessment Date Thrive assessed 02/21/25 02/21/25 08:34 Currently or been in a relationship where the following occur: No concerns reported Const General: alert; No acute distress Eyes Conjunctivae: conjunctivae normal Resp Auscultation: clear to auscultation bilaterally Cardio Rate: regular rate Rhythm: regular rhythm GI Inspection: Yes normal to inspection Extrem General: Yes normal to inspection and No edema Coding Level of Care Code Est Pt Level 4 (98987) Complex EM visit Add On G2211 Diagnoses Morbid obesity with BMI of 60.0-69.9, adult E66.01; Z68.44 Impaired glucose tolerance R73.02 Vitamin D deficiency E55.9 Gastroesophageal reflux disease without esophagitis K21.9 Esophagitis presence: without esophagitis Psoriasis L40.9 Major depression F32.9 Assessment & Plan Assessment & Plan (1) Morbid obesity with BMI of 60.0-69.9, adult: Code(s): E66.01 - Morbid (severe) obesity due to excess calories; Z68.44 - Body mass index [BMI] 60.0-69.9, adult Category: Medical Plan: Continue with diet and exercise, semaglutide was prescribed before (2) Impaired glucose tolerance: Code(s): R73.02 - Impaired glucose tolerance (oral) Category: Medical Plan: Decrease the amount of carbohydrate intake, pasta, bread, rice and potatoes are all sugar and that is aside from all the sweet stuff, remember that fruits are good but they are Sweet also. (3) Vitamin D deficiency: Code(s): E55.9 - Vitamin D deficiency, unspecified Category: Medical Plan: Vitamin-D 5368-1509 units once a day (4) GERD (gastroesophageal reflux disease): Code(s): K21.9 - Gastro-esophageal reflux disease without esophagitis Category: Medical Qualifiers: Esophagitis presence: without esophagitis Qualified Code(s): K21.9 - Gastro-esophageal reflux disease without esophagitis Plan: Avoid the foods that causes that usually spicy foods, tomato products, juices, coffee, soda and foods that your sensitive to. After eating do not lie down, allow 3-4 hours before in lie down. And keep the head of bed above 30 degrees to avoid the acid from going up. (5) Psoriasis: Code(s): L40.9 - Psoriasis, unspecified Category: Medical Plan: Continue to follow-up with dermatology (6) Major depression: Code(s): F32.9 - Major depressive disorder, single episode, unspecified Category: Medical Plan: Discussion with the patient regarding counseling and therapy Medications: Changed From semaglutide (weight loss) administer weeks 1 through 4 of therapy 1 mg (0.5 mL) subcut QWEEK 30 days 2.5 mL 1RF E66.01 - Morbid (severe) obesity due to excess calories, Z68.44 - Body mass index [BMI] 60.0-69.9, adult To semaglutide (weight loss) administer weeks 1 through 4 of therapy 1.7 mg (0.75 mL) subcut QWEEK 3.75 mL 3RF 30 days E66.01 - Morbid (severe) obesity due to excess calories, Z68.44 - Body mass index [BMI] 60.0-69.9, adult
== END 2025-02-21 08:55 | disposition home or self-care (01) ==
LOC: HO.HMCH 08:25
PROVIDERS: PCP Internal Medicine; Visit Provider Internal Medicine
DX: E66.01 Morbid (severe) obesity due to excess calories (principal); Z68.44 Body mass index [BMI] 60.0-69.9, adult; R73.02 Impaired glucose tolerance (oral); E55.9 Vitamin D deficiency, unspecified; K21.9 Gastro-esophageal reflux disease without esophagitis; L40.9 Psoriasis, unspecified; F32.9 Major depressive disorder, single episode, unspecified

== ENCOUNTER → 2025-02-21 08:24 | Outpatient (BNVA) | payer BC, SELFPAY | PROVIDERS: PCP Internal Medicine; Visit Provider Internal Medicine | DX: Z13.89 Encounter for screening for other disorder (principal) ==

== ENCOUNTER 2025-04-26 16:05 | Outpatient (AMB) | payer BC, SELFPAY ==
[2025-04-26 16:23] VITALS: BP 120/70; PULSE 69; RESP 18; TEMP 36.2; O2SAT 95; BMI 58.8
--- NOTE | 2025-04-26 16:23 | A.OFFPC_ITS ---
Vital Signs 04/26/25 16:23 Height 4 ft 11 in Weight 291 lb 4 oz BMI 58.8 BP 120/70 Blood Pressure Location Lt brachial Position Sitting Respiration 18 Pulse 69 Pulse Source Pulse Oximeter Temp 97.1 F Temp Source Temporal Artery Scan Pulse Oximetry (%) 95 Oxygen Delivery Method Room Air Intake Visit Reasons: Annual Exam Traffic Observer Required: No Accompanied by: Self / Same As Patient Allergies Sulfa (Sulfonamide Antibiotics) Allergy (Severe, Verified 04/26/25 16:29) Hives Medication List - Last Reconciled 04/26/25 by Anne Marie Boone MD betamethasone dipropionate 0.05% 1 appl topical DAILY PRN cetirizine (Zyrtec) 10 mg PO DAILY PRN ixekizumab 80 mg subcut .once a month omeprazole 20 mg PO DAILY semaglutide (weight loss) 2.4 mg (0.75 mL) subcut QWEEK 30 days simvastatin 5 mg PO BEDTIME Tobacco use date assessed: 04/26/25 Dental Screening Dental Screen Date: 04/26/25 Did you have a dental visit in the last 12 months?: Yes Did you have a dental problem in the last 6 months where you did not have access to dental care?: No Was dental information given to patient?: Patient has dentist [facility] Medical History (Updated 04/26/25 @ 17:04 by Anne Marie Boone MD) Annual physical exam Encounter for well woman exam with routine gynecological exam Neck fullness Hypersomnia Palpitation Morbid obesity with BMI of 60.0-69.9, adult Cervical cancer screening Breast cancer screening by mammogram Colon cancer screening 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 Mother No problems noted. Brother No problems noted. Maternal Aunt Lung cancer Brain cancer Maternal Uncle Brain cancer Maternal Uncle Alcohol abuse Mental health disorder Social History Housing: House Alcohol intake: current Alcohol intake frequency: holidays/special occasions only Comment: once a month 1-2 drinks Patient Tobacco Use Status: Never used Tobacco e-Cigarette/Vaping Use: Never Used Second Hand Smoke Exposure: No service: No Current occupational status: employed Current occupational exposures/hazards: No Sexual orientation: Lesbian/Deutsch/Homosexual Gender identity: Female Cognitive needs: No Hearing needs: No Vision needs: Yes Female Reproductive History Menstrual Age of Menarche: 13 Questionnaire PHQ-9 Over the last 2 weeks, how often have you been bothered by any of the following problems? 1. Little interest or pleasure in doing things: not at all 2. Feeling down, depressed, or hopeless: not at all 3. Trouble falling or staying asleep, or sleeping too much: not at all 4. Feeling tired or having little energy: not at all 5. Poor appetite or overeating: not at all 6. Feeling bad about yourself - or that you are a failure or have let yourself or your family down: not at all 7. Trouble concentrating on things, such as reading the newspaper or watching television: not at all 8. Moving or speaking so slowly that other people could have noticed. Or the opposite - being so fidgety or restless that you have been moving around a lot more than usual: not at all 9. Thoughts that you would be better off or of hurting yourself in some way: not at all Total score: 0 Source: Developed by Drs. Antolin Thomson, Marium Farfan, Nura Fernandez and colleagues, with an educational rupesh from [employer]. Thrive Questionnaire Date Thrive assessed: 04/26/25 I am a: Patient What is your living situation today?: I have a steady place to live Within the past 12 months, did the food you bought not last and you didn't have the money to get more?: Never true Within the past 12 months, did you worry whether your food would run out before you got money to buy more?: Never true Do you have trouble paying for medicines?: No Do you have trouble getting transportation to medical appointments?: No Do you have trouble paying your heating and electricity bill?: No Do you have trouble taking care of your child, family member or friend?: No Do you have trouble with day-to-day activities such as bathing, preparing meals, shopping, managing finances, etc.?: No Are you currently unemployed and looking for a job?: No Are you interested in more education?: No Please select the resources that you would like help with: None Currently or been in a relationship where the following occur: No concerns reported THRIVE Score: 0 AUDIT C Alcohol Use Questionnaire (AUDIT-C) 1. How often do you have a drink containing alcohol?: Monthly or less 3. How often do you have six or more drinks on one occasion?: Never Total Score: 1 TAMMIE-7 AMB Questionnaire TAMMIE-7 Date TAMMIE - 7 assessed: 04/26/25 Feeling nervous, anxious, or on edge: 0 = Not at all Not being able to stop or control worryin = Not at all Worrying too much about different things: 0 = Not at all Trouble relaxin = Not at all Being so restless that it is hard to sit still: 0 = Not at all Becoming easily annoyed or irritable: 0 = Not at all Feeling afraid as if something awful might happen: 0 = Not at all Total TAMMIE-7 score (0-4 normal; 5-9 mild; 10-14 moderate; 15-21 severe): 0 Source: Developed by Drs. Antolin Thomson, Marium Farfan, Nura Fernandez and colleagues, with an educational rupesh from [employer]. Review of Systems Const Denies poor appetite and Denies weakness Eyes Denies no additional complaints ENT Reports Normal hearing present, Denies dizziness, Denies nasal congestion, Denies tinnitus and Denies sore throat Card Denies chest pain, Denies syncope, Denies rapid heart rate and Denies dyspnea Resp Denies cough and Denies dyspnea GI Denies change in stool character, Reports constipation, Denies diarrhea, Denies nausea and Denies vomiting Denies urinary frequency, Denies difficulty voiding and Denies dysuria Neuro Reports Normal hearing present, Denies confusion, Denies dizziness, Denies syncope and Denies weakness Psych Denies confusion Physical exam (Primary Care) Vital Signs: Last Vital Signs Temp 97.1 F 04/26/25 16:23 Pulse 69 04/26/25 16:23 Resp 18 04/26/25 16:23 BP 120/70 04/26/25 16:23 Pulse Ox 95 04/26/25 16:23 Oxygen Delivery Method Room Air 04/26/25 16:23 BMI result Body Mass Index 58.8 Tobacco/Smoking Status: Tobacco use Status Tobacco use date assessed 04/26/25 04/26/25 16:36 Patient Tobacco Use Status Never used Tobacco 04/26/25 16:36 Tobacco use type 10/31/24 16:07 e-Cigarette/Vaping Use Never Used 04/26/25 16:36 PHQ-9: PHQ-9 Score PHQ-9: Total score 0 04/26/25 16:36 Thrive Assessment: Date of Thrive Assessment Date Thrive assessed 04/26/25 04/26/25 16:36 Currently or been in a relationship where the following occur: No concerns reported Const General: No confusion Orientation/consciousness: No confusion HENMT Head: Yes normocephalic Ears: external ears normal and TM's normal bilaterally Face and sinus: Yes normal facial exam Mouth: moist mucous membranes Throat: Yes tonsils normal Eyes Conjunctivae: conjunctivae normal Pupils: Equal, round and reactive pupils present and Pupil accommodation reflex normal Direct Ophthalmoscopy: normal light reflex Neck Neck: No lymphadenopathy Thyroid: Thyroid normal Chest Chest palpation & inspection: normal inspection of the chest Resp Effort & Inspection: normal respiratory effort and no audible wheezes Auscultation: clear to auscultation bilaterally, no crackles, no wheezes and lung sounds not diminished Cardio Rate: regular rate Rhythm: regular rhythm Peripheral pulses: radial pulses present and dorsalis pedis present GI Palpation (GI): no masses Auscultation: normal bowel sounds and normoactive bowel sounds Rectal Exam - Female: deferred Skin General skin exam: no rashes or lesions noted Rashes: no rashes Neuro General: No confusion Cranial nerves: Yes Equal, round and reactive pupils present and Yes Normal hearing present Cognition (Neuro): normal cognition Gait exam (Neuro): Normal gait present Motor exam (neuro): 5/5 motor strength present throughout Deep tendon reflexes (DTR's): Right brachioradialis reflex intensity grade: 2+, Left brachioradialis reflex intensity grade: 2+, Right patellar reflex intensity grade: 2+ and Left patellar reflex intensity grade: 2+ Extrem General: No edema Coding Level of Care Code Est Pt Prev Care 40-64y(63700) Diagnoses Gastroesophageal reflux disease without esophagitis K21.9 Esophagitis presence: without esophagitis Morbid obesity E66.01 Hypercholesterolemia E78.00 Impaired glucose tolerance R73.02 Vitamin D deficiency E55.9 Encounter for colorectal cancer screening using Cologuard test Z12.11; Z12.12 Psoriasis L40.9 Annual physical exam Z00.00 Assessment & Plan Assessment & Plan (1) GERD (gastroesophageal reflux disease): Code(s): K21.9 - Gastro-esophageal reflux disease without esophagitis Category: Medical Qualifiers: Esophagitis presence: without esophagitis Qualified Code(s): K21.9 - Gastro-esophageal reflux disease without esophagitis Plan: Avoid the foods that causes that usually spicy foods, tomato products, juices, coffee, soda and foods that your sensitive to. After eating do not lie down, allow 3-4 hours before in lie down. And keep the head of bed above 30 degrees to avoid the acid from going up. (2) Morbid obesity: Code(s): E66.01 - Morbid (severe) obesity due to excess calories Category: Medical Plan: Continue with diet and exercise continue with semaglutide (3) Hypercholesterolemia: Code(s): E78.00 - Pure hypercholesterolemia, unspecified Category: Medical Plan: Avoid fried foods, chicken skin, eggs, butter margarine, pastries and meat. Be it pork or beef they have a lot of cholesterol LDL goal of less than 130 and triglyceride of less than 150 February 2025 last blood (4) Impaired glucose tolerance: Code(s): R73.02 - Impaired glucose tolerance (oral) Category: Medical Plan: Decrease the amount of carbohydrate intake, pasta, bread, rice and potatoes are all sugar and that is aside from all the sweet stuff, remember that fruits are good but they are Sweet also. (5) Vitamin D deficiency: Code(s): E55.9 - Vitamin D deficiency, unspecified Category: Medical Plan: Vitamin-D 3894-2801 units once a day (6) Encounter for colorectal cancer screening using Cologuard test: Comment: 03/2025 negative Cologuard repeat in 3 years Code(s): Z12.11 - Encounter for screening for malignant neoplasm of colon; Z12.12 - Encounter for screening for malignant neoplasm of rectum Category: Medical Plan: March 2025 Cologuard negative (7) Psoriasis: Code(s): L40.9 - Psoriasis, unspecified Category: Medical Plan: Continue to follow-up with dermatology (8) Annual physical exam: Code(s): Z00.00 - Encounter for general adult medical examination without abnormal findings Category: Medical Plan: Patient is advised to eat healthy, keep well hydrated, keep active and have adequate sleep. Plan History of Present Illness The patient is a 54-year-old female presenting for a physical examination and management of chronic conditions. The patient has a history of psoriasis, for which she is currently under dermat ological care and is using Tulse and betamethasone as treatment. She continues to follow up with her television picture tube rebuilder, Dr. Ramos, in [place]. She has impaired glucose tolerance with a recent A1c of 5.8, indicating elevated blood sugar levels. The patient is on semaglutide 2.4 mg, which she reports is helping without causing significant side effects such as heartburn. The patient has hypercholesterolemia, with a goal to maintain LDL cholesterol below 130 mg/dL and triglycerides below 150 mg/dL. Her last blood work in February 2025 showed good LDL cholesterol levels. She has a history of major depressive disorder, which is being managed as part of her chronic conditions. The patient is obese, with a noted weight loss of 7 pounds since February 21, 2025. She is advised to continue with diet and exercise to aid in weight management. The patient has a vitamin D deficiency and is recommended to take 1000 to 2000 units of vitamin D daily. Preventative care measures include a negative Cologuard test in November 2021 and an up-to-date mammogram. Health Maintenance - Colon cancer screening with stool test (Cologuard) negative in November 2021 - Mammogram up to date - Recommended vitamin D supplementation: 1000 to 2000 units daily - Advised to maintain diet and exercise regimen for weight management Social History - Alcohol consumption: Rare, approximately once a month, typically one drink - Tobacco use: Denies smoking - Recreational drug use: Denies use, except for rare consumption of gummies - Exercise: Minimal walking, not exercising as recommended - Family history: Brain and lung cancer in relatives, no known heart disease Review of Systems - General: Reports weight loss of 7 pounds since February 21, 2025 - Dermatological: Reports psoriasis, under dermatological care - Endocrine: Reports impaired glucose tolerance, vitamin D deficiency - Psychiatric: Reports history of major depressive disorder - Gastrointestinal: Denies nausea, vomiting, or dysphagia - Respiratory: Denies dyspnea or cough, except when consuming carbonated beverages - Cardiovascular: Denies chest pain or palpitations - Neurological: Denies dizziness or syncope - Genitourinary: Denies dysuria, reports nocturia once per night occasionally Physical Exam General: Cooperative, healthy appearing, comfortable, no acute distress and well developed Orientation: Patient oriented x3 Limitations: No limitations Head: Normal to inspection Ears: Hearing grossly normal bilaterally Nose: Normal external nose present Face and sinus: Normal facial exam Eyes: Appearance normal, both eyes and all related structures Neck: Normal visual inspection and Yes full ROM Respiratory: Normal respiratory effort and able to speak in complete sentences. Clear to auscultation bilaterally Cardiovascular: Regular rate and rhythm. Normal S1 and S2 GI: Normal to inspection. Soft to palpation and nontender Skin: No rashes or lesions noted Neuro: Patient oriented x3 Extremities: Normal to inspection Results - Labs: A1c 5.8, indicating impaired glucose tolerance - Labs: Vitamin D low - Labs: LDL cholesterol within goal range - Screening: Cologuard negative November 2021 Plan The patient will continue with her current regimen of semaglutide 2.4 mg for impaired glucose tolerance, as it is effective without significant side effects. She is advised to maintain her LDL cholesterol below 130 mg/dL and triglycerides below 150 mg/dL, with simvastatin 5 mg as part of her treatment plan. For her psoriasis, the patient will continue using Tulse and betamethasone, with ongoing follow-up with her television picture tube rebuilder, Dr. Ramos. Vitamin D supplementation is recommended at 1000 to 2000 units daily to address her deficiency. The patient is encouraged to continue her diet and exercise regimen to support weight management and overall health. Preventative care measures include scheduling a mammogram and considering the timing for her next colon cancer screening. Patient was informed and verbally consented to the use of an ambient scribe for clinic note documentation during this visit. Discussion Notes During the visit, we discussed the management of the patient's chronic conditions, including impaired glucose tolerance and hypercholesterolemia. I advised her to continue with semaglutide and simvastatin, and to maintain her diet and exercise regimen. We also reviewed her dermatological care for psoriasis and the importance of vitamin D supplementation. Preventative care measures, such as scheduling a mammogram and considering the timing for her next colon cancer screening, were also discussed. Patient Instructions - Continue taking semaglutide 2.4 mg as prescribed. - Maintain LDL cholesterol below 130 mg/dL and triglycerides below 150 mg/dL with simvastatin 5 mg. - Use Tulse and betamethasone for psoriasis as directed by your television picture tube rebuilder. - Take 1000 to 2000 units of vitamin D daily. - Follow a healthy diet and exercise regularly to support weight management. - Schedule a mammogram and plan for your next colon cancer screening.
== END 2025-04-26 17:24 | disposition home or self-care (01) ==
LOC: HO.HMCH 16:06
PROVIDERS: PCP Internal Medicine; Visit Provider Internal Medicine
DX: Z00.00 Encounter for general adult medical examination without abnormal findings (principal); K21.9 Gastro-esophageal reflux disease without esophagitis; E66.01 Morbid (severe) obesity due to excess calories; Z68.43 Body mass index [BMI] 50.0-59.9, adult; E78.00 Pure hypercholesterolemia, unspecified; R73.02 Impaired glucose tolerance (oral); E55.9 Vitamin D deficiency, unspecified; Z12.11 Encounter for screening for malignant neoplasm of colon; Z12.12 Encounter for screening for malignant neoplasm of rectum; L40.9 Psoriasis, unspecified

== ENCOUNTER 2025-06-25 08:21 | Outpatient (AMB) | payer BC, SELFPAY ==
[2025-06-25 08:23] VITALS: BP 140/88; PULSE 84; TEMP 36.2; O2SAT 93; BMI 59.2
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
== END 2025-06-25 08:49 | disposition home or self-care (01) ==
LOC: HO.HMCH 08:21
PROVIDERS: PCP Internal Medicine; Visit Provider Internal Medicine
DX: R79.89 Other specified abnormal findings of blood chemistry (principal); J01.00 Acute maxillary sinusitis, unspecified; E66.813 Obesity, class 3; Z68.43 Body mass index [BMI] 50.0-59.9, adult; E78.5 Hyperlipidemia, unspecified; R03.0 Elevated blood-pressure reading, without diagnosis of hypertension

== ENCOUNTER 2025-07-04 07:38 | Outpatient (REF) | payer BC, SELFPAY ==
[2025-07-04 23:20] LABS: Bacterial Vaginosis PCR NEGATIVE (Negative); Candida Group PCR DETECTED (Not Detect); Candida glab krusei PCR NOT DETECTED (Not Detect); Trichomonas vaginalis PCR NOT DETECTED (Not Detect)
== END 2025-07-04 07:39 | disposition home or self-care (01) ==
LOC: HO.LAB 07:38
PROVIDERS: PCP Internal Medicine; Visit Provider Advanced Practice Midwife
DX: Z01.419 Encounter for gynecological examination (general) (routine) without abnormal findings (principal); R10.20 Pelvic and perineal pain unspecified side; R14.0 Abdominal distension (gaseous); N90.89 Other specified noninflammatory disorders of vulva and perineum; N94.89 Other specified conditions associated with female genital organs and menstrual cycle
CPT/HCPCS: 81515

== ENCOUNTER 2025-07-04 07:38 | Outpatient (AMB) | payer BC, SELFPAY ==
[2025-07-04 07:44] VITALS: BP 110/70; BMI 59.4
--- NOTE | 2025-07-04 07:44 | MHC.OFFVIS ---
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 No leakage of urine. Uses Aveeno wash. Denies urinary symptoms. Has pelvic pressure and bloating at times, denies any constipation at this time. Attempting to eat a healthy diet with calcium and vitamin D and stays active with exercise-limited Last pap smear; 2020, negative. Last mammogram; 2024. Colonoscopy is UTD. Denies any family history of breast, ovarian or colon cancer. 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 Mother No problems noted. Brother No problems noted. Maternal Aunt Lung cancer Brain cancer Maternal Uncle Brain cancer Maternal Uncle Alcohol abuse Mental health disorder Social History Housing: House Alcohol intake: current Alcohol intake frequency: holidays/special occasions only Comment: once a month 1-2 drinks Patient Tobacco Use Status: Never used Tobacco e-Cigarette/Vaping Use: Never Used Second Hand Smoke Exposure: No service: No Current occupational status: employed Current occupational exposures/hazards: No Sexual orientation: Lesbian/Deutsch/Homosexual Gender identity: Female Cognitive needs: No Hearing needs: No Vision needs: Yes Female Reproductive History Menstrual Age of Menarche: 13 Age of menopause: 49 Review of Systems Const All systems reviewed & are unremarkable except as noted in HPI and below Reports as per HPI Eyes Reports no additional complaints ENT Reports no additional complaints Card Reports no additional complaints Resp Reports no additional complaints GI Reports as per HPI and Reports no additional complaints Reports as per HPI Musc Reports no additional complaints Skin/Breast Reports as per HPI Neuro Reports no additional complaints Psych Reports no additional complaints Endo Reports no additional complaints Fernando/Lymph Reports no additional complaints Aller/Immun Reports no additional complaints Physical Exam Vital Signs: Last Vital Signs BP 110/70 07/04/25 07:44 BMI result Body Mass Index 59.4 Const General: cooperative, healthy appearing, no acute distress, well developed and alert Orientation/consciousness: patient oriented x3 HEENT Head: Yes normal to inspection Eyes General: appearance normal, both eyes and all related structures Neck Neck: Yes normal visual inspection Thyroid: Thyroid normal Chest Chest palpation & inspection: normal inspection of the chest and other (no puckering, dimpling, peau de orange, retraction, discharge, masses) Breast/axilla inspection: normal inspection of the breasts Breast/axilla palpation: normal palpation of the breasts Resp Effort & Inspection: normal respiratory effort GI Inspection: Yes normal to inspection Palpation (GI): Soft to palpation Rectal Exam - Female: deferred Other: large pannus-staff and partner supported during exam, erythema area's on bilateral labia majora, gluteal and upper thighs. General: Yes bladder normal to palpation External Female Exam: normal external appearance and normal appearance of the urethra Speculum Exam - Vagina: normal appearance of the vagina, normal palpation, normal vaginal discharge and vagina atrophic Speculum Exam - Cervix: normal appearance of the cervix and normal palpation Bimanual exam- vagina & uterus: normal bimanual exam, normal palpation, bladder normal to palpation, normal palpation and non-tender Bimanual Exam- Adnexa, other: no masses (Limited exam due to body habitus) Skin General skin exam: no rashes or lesions noted Rashes: no rashes Neuro General: patient oriented x3 Cognition (Neuro): normal cognition Extrem General: Yes normal to inspection Psych Attitude: cooperative Thought process: Normal thought process present Assessment & Plan Assessment & Plan (1) Pelvic pressure in female: Code(s): R10.2 - Pelvic and perineal pain Category: Medical Plan: Plan pelvic ultrasound. (2) Abdominal bloating: Code(s): R14.0 - Abdominal distension (gaseous) Category: Medical Plan: Follow up ultrasound results pending. (3) Encounter for well woman exam with routine gynecological exam: Code(s): Z01.419 - Encounter for gynecological examination (general) (routine) without abnormal findings Category: Medical Plan: Discussed: Current recommendations for pap smears per ASCCP guidelines. Breast awareness, periodic self breast exams and yearly mammogram. Maintain a healthy lifestyle, well balanced diet including Calcium 1,200 mg and Vitamin D 600 IU daily, and routine exercise. Contact the office with any postmenopausal bleeding. Patient verbalizes understanding and agrees to the plan of care. She was given opportunity to ask questions and all questions were answered to the best of my ability. RTO in 1 year for annual aerial sprayer exam. This note is constructed using voice recognition software. While every effort has been made to ensure accuracy, industrial diamond polisher errors may have been included. (4) Vulvar irritation: Code(s): N90.89 - Other specified noninflammatory disorders of vulva and perineum Plan Await results of BV panel for final plan of care. Most likely mechanical irritation due to opposing tissue. Reviewed skin care with the patient. Follow up p.r.n. or symptoms worsened. The patient expressed understanding and agreement with the plan of care. All of her questions and concerns were addressed to the best of my ability. Total time I personally spent on visit and management today: ? 15 minutes. Time spent included review of pertinent office notes in the electronic health record; review of laboratory and imaging results; review of personal family medical history; performing physical exam; discussing diagnosis and plan of care with the patient; documenting the encounter in the EMR. This note is constructed using voice recognition software. While every effort has been made to ensure accuracy, industrial diamond polisher errors may have been included. Orders: Orders Bacterial Vaginosis Panel Today N94.89 - Other specified conditions associated with female genital organs and menstrual cycle US pelvic and transvaginal Today R10.2 - Pelvic and perineal pain, R14.0 - Abdominal distension (gaseous) Coding Level of Care Code Est Pt Level 2 (25632) Est Pt Prev Care 40-64y(07115) Diagnoses Pelvic pressure in female R10.2 Abdominal bloating R14.0 Encounter for well woman exam with routine gynecological exam Z01.419 Vulvar irritation N90.89
== END 2025-07-04 08:28 | disposition home or self-care (01) ==
LOC: HO.HWS 07:38
PROVIDERS: PCP Internal Medicine; Visit Provider Advanced Practice Midwife
DX: Z01.419 Encounter for gynecological examination (general) (routine) without abnormal findings (principal); R10.20 Pelvic and perineal pain unspecified side; R14.0 Abdominal distension (gaseous); N90.89 Other specified noninflammatory disorders of vulva and perineum
CPT/HCPCS: 99212; 99396; 99459

== ENCOUNTER 2025-07-23 07:26 | Outpatient (REF) | payer BC, SELFPAY ==
--- NOTE | ~2025-07-23 | MM_ITS ---
EXAMINATION: MM SCREENING DIGITAL BREAST TOMOSYNTHESIS, BILATERAL CLINICAL INFORMATION: Screening. Asymptomatic. COMPARISON: Comparison made to multiple prior, most recent July 18, 2024, and most remote June 19, 2022. TECHNIQUE: Digital breast tomosynthesis is performed in mediolateral oblique and craniocaudal views along with computer-aided detection (CAD). Synthesized 2D images are generated from the tomosynthesis. A pad was used due to skin conditions. FINDINGS: BREAST COMPOSITION: There are scattered areas of fibroglandular density. BILATERAL BREASTS: No significant masses, suspicious calcifications or other abnormalities are seen in either breast. MM/MM tomosynthesis screening BI IMPRESSION: BILATERAL BREASTS: Negative, no mammographic evidence of malignancy. Normal interval follow-up is recommended in 12 months. ASSESSMENT: BI-RADS: Category 1: Negative RECOMMENDATION: Routine annual mammography screening. FOLLOW-UP: 1 year F/U This examination should not preclude the clinical evaluation of a suspicious palpable abnormality. This patient's information was entered into a reminder system with a target due date for their next mammogram. Electronically signed by: Karthik Alamo MD 07/23/2025 07:33 PM EST
== END 2025-07-23 07:27 | disposition home or self-care (01) ==
LOC: HO.MAMMO 07:26
PROVIDERS: PCP Internal Medicine; Visit Provider Internal Medicine
DX: Z12.31 Encounter for screening mammogram for malignant neoplasm of breast (principal)
CPT/HCPCS: 77063; 77067

== ENCOUNTER → 2025-07-23 07:30 | Outpatient (BNV) | payer BC, SELFPAY | PROVIDERS: PCP Internal Medicine; Visit Provider Radiology Body Imaging | DX: Z12.31 Encounter for screening mammogram for malignant neoplasm of breast (principal) | CPT/HCPCS: 77063; 77067 ==

== ENCOUNTER 2025-08-31 10:53 | Outpatient (REF) | payer BC, SELFPAY ==
--- NOTE | ~2025-08-31 | US_ITS ---
EXAMINATION: US PELVIS TRANSABDOMINAL AND TRANSVAGINAL HISTORY: R10.2 - Pelvic and perineal pain COMPARISON: There are no prior studies available for comparison. TECHNIQUE: Transabdominal and endovaginal real-time 2D larios-scale ultrasound was performed. FINDINGS: Uterus: The uterus is normal in size, measuring 5.9 x 2.8 x 3.5 cm. Myometrium has a normal echotexture. No fibroids are identified. Endometrium: The endometrial stripe measures 4 mm in thickness. There are nabothian cysts in the cervix. Right ovary: The right ovary is not identified. Left ovary: The left ovary measures 1.9 x 1.5 x 2.5 cm. The left ovary is normal in size and echotexture. Pelvic fluid: none. US/US pelvic and transvaginal IMPRESSION: The right ovary is not identified. Otherwise unremarkable pelvic ultrasound. Electronically signed by: Antolin Stark MD 08/31/2025 11:39 AM EST
== END 2025-08-31 10:54 | disposition home or self-care (01) ==
LOC: HO.US 10:53
PROVIDERS: PCP Internal Medicine; Visit Provider Advanced Practice Midwife
DX: R14.0 Abdominal distension (gaseous) (principal); R10.20 Pelvic and perineal pain unspecified side
CPT/HCPCS: 76830; 76856

== ENCOUNTER → 2025-08-31 10:55 | Outpatient (BNV) | payer BC, SELFPAY | PROVIDERS: PCP Internal Medicine; Visit Provider Radiology Diagnostic Radiology | DX: N88.8 Other specified noninflammatory disorders of cervix uteri (principal); R10.20 Pelvic and perineal pain unspecified side | CPT/HCPCS: 76830; 76856 ==